=== PATIENT | male | born 1955 | race Caucasian/White ===

== ENCOUNTER 2021-07-05 07:28 | Inpatient (IN) ==
[2021-07-05 08:28] LABS: POC Blood Urea Nitrogen 44 (6-20); POC Calcium, Ionized 1.06 (1.16-1.32); POC Chloride 96 (96-108); POC Creatinine 2.6 (0.6-1.2); POC Glucose, Random > 700 (70-105); POC Potassium 4.8 (3.3-5.1); POC Sodium 124 (133-145)
--- NOTE | 2021-07-05 08:39 | Cat Scan Report ---
History: Fell, hit head, increased weakness, tremors TECHNIQUE: The brain was imaged without contrast in axial plane at 2.5 mm intervals. The radiation exposure was limited using dose reduction technology. FINDINGS: The bone windows show no skull fracture. There is motion artifact on several images. There is no evidence of hemorrhage, edema, infarct or mass effect. The ventricles and cisterns are normal. There is minor atrophy above the tentorium. IMPRESSION: Normal exam Dr. Vaughan was called with the results Interpreted and Authenticated by: Rosalio Gutierrez 07/05/21
--- NOTE | 2021-07-05 08:45 | Cat Scan Report ---
History: Fell, neck injury with pain radiating to left arm TECHNIQUE: The neck was imaged without contrast in axial plane from the skull base through the thoracic inlet. Sagittal and coronal reformats were created. The radiation exposure was limited using dose reduction technology. FINDINGS: There is a mild levoscoliotic curvature. No fracture or spondylolisthesis are present. Mild arthritis is present at the articulation of the odontoid and anterior ring of C1. Moderate disc space narrowing is present at C4-5 and there is more severe disc space narrowing at C6-7. C3-4 and C5-6 disc spaces are mildly narrowed. There is focal ossification of the posterior longitudinal ligament at C7. There is mild spurring of the uncinate processes bilaterally at C3-4 and C4-5, causing mild stenosis of the foramina. The greatest narrowing is on the right side at C4-5. There is no paraspinal hematoma or edema. Lung apices are clear and there is no pneumothorax. IMPRESSION: No fracture Degenerative disc disease and arthritis at several levels Dr. Vaughan was called with the report Interpreted and Authenticated by: Rosalio Gutierrez 07/05/21
--- NOTE | 2021-07-05 08:49 | Emergency Department Note ---
HPI General Chief complaint: Weakness Stated complaint: weakness Time Seen by Provider: 07/05/21 08:00 Source: EMS Mode of arrival: ambulatory History of Present Illness HPI Narrative: Narrative: Patient presents to the emergency department after a fall. Patient reports it is ground-level his legs just gave out from underneath him. Patient does have a tremor at baseline. Patient denies otherwise any focal weakness. EMS reports that upon arrival of the patient's house there is human feces scattered and appeared to be poor living conditions. They state they are frequently called to his home. At the time of arrival patient states that he hit his head he denies loss of consciousness. He initially was not agreeable to any labs being obtained. He denies any fevers chills, shortness of breath. Related Data Home Medications Medication Instructions Recorded Confirmed alcohol swabs (BD Alcohol Swabs) See Rx Instructions TOPICAL 01/20/18 07/05/21 .COMPLEX cholecalciferol (vitamin D3) 50 2,000 unit PO QDAY 01/20/18 07/05/21 mcg (2,000 unit) capsule pen needle, diabetic 32 gauge x #10 each 01/20/18 08/16/20 5/32" (BD Ultra-Fine Arabella Pen Needle) zinc acetate 50 mg (zinc) capsule 50 mg PO QDAY 12/15/19 07/05/21 (Galzin) acetaminophen 650 mg 1 tab PO Q4HP PRN 07/05/21 07/05/21 tablet,extended release (Tylenol Arthritis Pain) albuterol sulfate 90 mcg/actuation 2 puff PO Q6HP PRN 07/05/21 07/05/21 aerosol inhaler budesonide-formoterol HFA 160 2 puff CONTINUOUS INHALATION BID 07/05/21 07/05/21 mcg-4.5 mcg/actuation aerosol inhaler carvedilol 6.25 mg tablet 1 tab PO BIDAC 07/05/21 07/05/21 cyclobenzaprine 10 mg tablet 1 tab PO HSP PRN 07/05/21 07/05/21 famotidine 20 mg tablet 1 tab PO QDAY 07/05/21 07/05/21 flash glucose sensor (FreeStyle 07/05/21 07/05/21 Ed 2 Sensor) gabapentin 300 mg capsule 1 cap PO BID 07/05/21 07/05/21 insulin glargine U-300 conc 300 50 unit SUBCUT HS 07/05/21 07/05/21 unit/mL (3 mL) subcutaneous pen (Toujeo Max U-300 SoloStar) insulin lispro 100 unit/mL See Rx Instructions .ROUTE .COMPLEX 07/05/21 07/05/21 subcutaneous pen primidone 250 mg tablet See Rx Instructions .ROUTE .COMPLEX 07/05/21 07/05/21 tamsulosin 0.4 mg capsule 2 cap PO QAM 07/05/21 07/05/21 tramadol 50 mg tablet 50 mg PO TID 07/05/21 07/05/21 vitamin B complex-vitamin C-folic 1 tab PO QDAY 07/05/21 07/05/21 acid 0.8 mg tablet (Jolly-Blayne) Allergies Allergy/AdvReac Type Severity Reaction Status Date / Time Procaine [From Novocain] Allergy Severe "breathing Verified 07/05/21 07:43 difficulty" Sulfa (Sulfonamide Allergy Severe Anaphylaxis Verified 07/05/21 07:43 Antibiotics) influenza virus vacc Allergy Intermediate SOB, Verified 07/05/21 13:10 trivalent, split itching [From Fluzone] ibuprofen AdvReac Severe has ckd Verified 07/05/21 07:43 and hx of liver cancer rosuvastatin AdvReac Intermediate Stomach Verified 07/05/21 13:10 pain Review of Systems ROS ROS Narrative: Narrative: All systems ED: reviewed and negative except as stated. COUNT INCLUDES THE [facility] Narrative Patient History Narrative: Narrative: Medical/Surgical/Family History All Active Problems (Updated 07/05/21 @ 13:20 by Diomedes Thomson MD) Lactic acidosis (Acute) ADRYAN (acute kidney injury) (Acute) High anion gap metabolic acidosis (Acute) Effusion of right knee (Acute) Hyperosmolar hyperglycemic state (HHS) (Acute) VAHID (obstructive sleep apnea) (Chronic) Diaphragm paralysis (Chronic) Scoliosis (Chronic) Resting tremor (Chronic) GERD (gastroesophageal reflux disease) (Chronic) Electrocardiogram abnormal (Chronic) Lumbar radiculopathy (Chronic) Cervical radiculopathy (Chronic) Secondary hyperparathyroidism (Chronic) History of intravenous drug abuse (Chronic) History of tobacco use (Chronic) Urethral stricture, 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) RAD (reactive airway disease) (Chronic) Proteinuria (Chronic) Prostatitis, unspecified (Chronic 02/26/13) Pancreatitis (Chronic) Obesity (Chronic) Malignant neoplasm of liver (Chronic) Lymphedema (Chronic 04/30/13) Impotence, 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) Personal history of hypospadias (Chronic 02/26/13) Hypertension, essential (Chronic 02/05/13) Hyperlipidemia (Chronic) Heartburn (Chronic) Elevated PSA (Chronic 02/10/13) Edema (Chronic) DMII (diabetes mellitus, type 2) (Chronic 2008) Colon polyps (Chronic 03/11/13) COPD (chronic obstructive pulmonary disease) (Chronic) CKD (chronic kidney disease), stage IV (Chronic) Chest pain (Chronic 07/22/13) BPH w/o urinary obs/LUTS (Chronic 01/2013) Asthma (Chronic 1954) Anemia in chronic kidney disease (Chronic) Rib pain (Chronic) Thoracic back pain (Chronic) Medical History (Updated 07/05/21 @ 13:20 by Diomedes Thomson MD) Anemia in chronic kidney disease Asthma (1954) BPH w/o urinary obs/LUTS (01/2013) Cervical radiculopathy Chest pain (07/22/13) noted as left arm pain, associated with stress given his high risk factors for CAD get nuclear stress test. ekg done today shows poor r wave progression, LAFB. CKD (chronic kidney disease), stage IV Colon polyps (03/11/13) HP COPD (chronic obstructive pulmonary disease) Diaphragm paralysis Significantly elevated right diaphragm; fluoroscopy pending 03/10/2018 DMII (diabetes mellitus, type 2) (2008) Edema Electrocardiogram abnormal Elevated PSA (02/10/13) GERD (gastroesophageal reflux disease) Heartburn History of intravenous drug abuse History of tobacco use Hyperlipidemia Hypertension, essential (02/05/13) Impotence, organic (01/2013) Lumbar radiculopathy Lymphedema (04/30/13) Malignant neoplasm of liver Obesity VAHID (obstructive sleep apnea) Attempted CPAP; but unable to tolerate and he returned the machine. Pancreatitis Personal history of hypospadias (02/26/13) Prostatitis, unspecified (02/26/13) Proteinuria RAD (reactive airway disease) Resting tremor Scoliosis Secondary hyperparathyroidism Urethral stricture, traumatic (03/30/13) Surgical History H/O colonoscopy 03/11/13 HP- colonoscopy due in 10 years H/O cystoscopy Visual internal urethrotomy H/O eye surgery 1969 Bilateral H/O prostate biopsy 2010 History of surgery 07/2015 REC LSR hang back and REC LR OU History of surgery of liver Liver cancer Status post biopsy of kidney 07/01/2013 Family History Mother , at 61 Diabetes Father , at 100 Old age Social History Smoking Status: Former smoker Alcohol Intake Frequency: a few times a week Substance Use: former substance user Exam Narrative Narrative: Narrative: Vital signs noted General: Awake. Alert. No distress. HEENT: NCAT Neck: No cervical spinal tenderness to palpation in the midline Cardiovascular: RRR. No murmur. No rubs. No gallops. Respiratory: No respiratory distress. Breath sounds equal. Lungs clear. Gastrointestinal: Soft. No tenderness Musculoskeletal: No pain. No soft tissue swelling. Good ROM. No signs injury Skin: Warm. Dry. No rash Neurologic: Alert and oriented, tremors throughout all extremities every 10 to 20 seconds patient reports is baseline Course Vital Signs Vital signs: Vital Signs Temperature 98.0 F 07/05/21 07:32 Pulse Rate 99 H 07/05/21 07:32 Respiratory Rate 16 07/05/21 07:32 Blood Pressure 129/78 07/05/21 07:32 Pulse Oximetry (%) 95 07/05/21 07:32 Temperature 98.2 F 07/06/21 02:01 Pulse Rate 84 07/06/21 03:01 Respiratory Rate 20 07/06/21 03:01 Blood Pressure 116/68 07/06/21 03:01 Pulse Oximetry (%) 95 07/06/21 03:01 [facility] MDM Narrative Medical decision making narrative: Narrative: Patient presents to the emergency department after a fall. EMS reports that the patient was in poor living conditions. Patient initially declined labs but was agreeable to a [id number] blood glucose which read greater than 600 he then was agreeable for labs his blood glucose came back at 900 patient was given 2 L of IV fluids his VBG does not show that he is acidotic his pH is 7.33 however he does have a mild anion gap acidosis the bicarb of 14 anion gap is 23. Patient's beta hydroxybutyrate is 1.49. I suspect mostly hyperosmotic hyperglycemic state as opposed to a pure DKA. Patient was started on insulin drip 0.1 units/kg/h mag and Phos were sent. Patient will be admitted to the hospitalist for further work-up and evaluation. Lab Data Result diagrams: 07/05/21 08:20 07/05/21 12:34 Labs: Lab Results 07/05/21 07/05/21 07/05/21 Range/Units 08:20 08:20 08:20 WBC 9.0 (4.5-11.0) K/mcL RBC 5.00 (4.63-6.08) M/mcL Hgb 13.9 (13.7-17.5) g/dL Hct 45.9 (40.1-51.0) % POC Hct (41-55) MCV 91.8 (80.0-100.0) fL MCH 27.8 (26.0-34.0) pg MCHC 30.3 L (31.0-36.0) g/dL RDW 18.2 H (11.5-14.5) % Plt Count 415 (140-440) K/mcL MPV 10.6 H (7.4-10.4) fL Neut % (Auto) 67.5 (38.0-78.0) % Lymph % (Auto) 22.3 (15.5-49.0) % [place] % (Auto) 7.4 (1.0-12.0) % Eos % (Auto) 2.2 (0.0-7.0) % Baso % (Auto) 0.6 (0.0-2.0) % Lymph # (Auto) 2.02 (1.50-4.80) K/mcL [place] # (Auto) 0.67 (0.10-0.90) K/mcL Eos # (Auto) 0.20 (0.00-0.70) K/mcL Baso # (Auto) 0.05 (0.00-0.30) K/mcL Absolute Neutrophils 6.10 (1.80-8.00) K/mcL POC VBG pH (7.32-7.42) POC VBG pCO2 at Temp (41-51) POC VBG pO2 (25-40) POC VBG HCO3 (24-28) POC VBG Total CO2 (25-29) POC Venous O2 Sat (40-70) POC VBG Base Excess (-2-2) POC Sodium (133-145) Sodium (133-145) mmol/L POC Potassium (3.3-5.1) Potassium (3.3-5.1) mmol/L POC Chloride (96-108) Chloride (96-108) mmol/L Carbon Dioxide (22-30) mmol/L POC Total CO2 (22-30) Anion Gap (8.0-16.0) POC BUN (6-20) BUN (8-23) mg/dL Creatinine (0.7-1.2) mg/dL POC Creatinine (0.6-1.2) GFR Calculation Glucose (70-105) mg/dL POC Glucose (70-105) Osmolality 329 H (280-300) mOSM/kg POC Venous Lactate (0.5-2) Calcium (8.6-10.4) mg/dL POC WB Ioniz Calcium (1.16-1.32) Phosphorus (2.5-4.5) mg/dL Magnesium (1.6-2.5) mg/dL Total Bilirubin 0.4 (0.1-1.0) mg/dL Direct Bilirubin 0.3 H (<0.3) mg/dL AST 14 (<40) U/L ALT 10 (<40) U/L Alkaline Phosphatase 122 H (39-117) U/L Total Protein 6.3 (5.9-8.4) gm/dL Albumin 3.6 (3.2-5.2) gm/dL Globulin 2.7 (2.2-3.7) gm/dL Beta-Hydroxybutyrate 1.49 H (<0.27) mmol/L 07/05/21 07/05/21 07/05/21 Range/Units 08:20 08:20 08:23 WBC (4.5-11.0) K/mcL RBC (4.63-6.08) M/mcL Hgb (13.7-17.5) g/dL Hct (40.1-51.0) % POC Hct 46.0 (41-55) MCV (80.0-100.0) fL MCH (26.0-34.0) pg MCHC (31.0-36.0) g/dL RDW (11.5-14.5) % Plt Count (140-440) K/mcL MPV (7.4-10.4) fL Neut % (Auto) (38.0-78.0) % Lymph % (Auto) (15.5-49.0) % [place] % (Auto) (1.0-12.0) % Eos % (Auto) (0.0-7.0) % Baso % (Auto) (0.0-2.0) % Lymph # (Auto) (1.50-4.80) K/mcL [place] # (Auto) (0.10-0.90) K/mcL Eos # (Auto) (0.00-0.70) K/mcL Baso # (Auto) (0.00-0.30) K/mcL Absolute Neutrophils (1.80-8.00) K/mcL POC VBG pH (7.32-7.42) POC VBG pCO2 at Temp (41-51) POC VBG pO2 (25-40) POC VBG HCO3 (24-28) POC VBG Total CO2 (25-29) POC Venous O2 Sat (40-70) POC VBG Base Excess (-2-2) POC Sodium 124 L (133-145) Sodium 123 L 125 L (133-145) mmol/L POC Potassium 4.8 (3.3-5.1) Potassium 4.7 4.8 (3.3-5.1) mmol/L POC Chloride 96 (96-108) Chloride 87 L 88 L (96-108) mmol/L Carbon Dioxide 17 L 14 L (22-30) mmol/L POC Total CO2 22.0 (22-30) Anion Gap 19.0 H 23.0 H (8.0-16.0) POC BUN 44 H (6-20) BUN 41 H (8-23) mg/dL Creatinine 2.4 H (0.7-1.2) mg/dL POC Creatinine 2.6 H (0.6-1.2) GFR Calculation 27 Glucose 900 H* (70-105) mg/dL POC Glucose > 700 H* (70-105) Osmolality (280-300) mOSM/kg POC Venous Lactate (0.5-2) Calcium 8.7 (8.6-10.4) mg/dL POC WB Ioniz Calcium 1.06 L (1.16-1.32) Phosphorus 3.5 (2.5-4.5) mg/dL Magnesium 2.8 H (1.6-2.5) mg/dL Total Bilirubin (0.1-1.0) mg/dL Direct Bilirubin (<0.3) mg/dL AST (<40) U/L ALT (<40) U/L Alkaline Phosphatase (39-117) U/L Total Protein (5.9-8.4) gm/dL Albumin (3.2-5.2) gm/dL Globulin (2.2-3.7) gm/dL Beta-Hydroxybutyrate (<0.27) mmol/L 07/05/21 Range/Units 08:24 WBC (4.5-11.0) K/mcL RBC (4.63-6.08) M/mcL Hgb (13.7-17.5) g/dL Hct (40.1-51.0) % POC Hct (41-55) MCV (80.0-100.0) fL MCH (26.0-34.0) pg MCHC (31.0-36.0) g/dL RDW (11.5-14.5) % Plt Count (140-440) K/mcL MPV (7.4-10.4) fL Neut % (Auto) (38.0-78.0) % Lymph % (Auto) (15.5-49.0) % [place] % (Auto) (1.0-12.0) % Eos % (Auto) (0.0-7.0) % Baso % (Auto) (0.0-2.0) % Lymph # (Auto) (1.50-4.80) K/mcL [place] # (Auto) (0.10-0.90) K/mcL Eos # (Auto) (0.00-0.70) K/mcL Baso # (Auto) (0.00-0.30) K/mcL Absolute Neutrophils (1.80-8.00) K/mcL POC VBG pH 7.33 (7.32-7.42) POC VBG pCO2 at Temp 38.8 L (41-51) POC VBG pO2 39 (25-40) POC VBG HCO3 20.4 L (24-28) POC VBG Total CO2 22.0 L (25-29) POC Venous O2 Sat 70.0 (40-70) POC VBG Base Excess -6.0 L (-2-2) POC Sodium (133-145) Sodium (133-145) mmol/L POC Potassium (3.3-5.1) Potassium (3.3-5.1) mmol/L POC Chloride (96-108) Chloride (96-108) mmol/L Carbon Dioxide (22-30) mmol/L POC Total CO2 (22-30) Anion Gap (8.0-16.0) POC BUN (6-20) BUN (8-23) mg/dL Creatinine (0.7-1.2) mg/dL POC Creatinine (0.6-1.2) GFR Calculation Glucose (70-105) mg/dL POC Glucose (70-105) Osmolality (280-300) mOSM/kg POC Venous Lactate 2.1 H (0.5-2) Calcium (8.6-10.4) mg/dL POC WB Ioniz Calcium (1.16-1.32) Phosphorus (2.5-4.5) mg/dL Magnesium (1.6-2.5) mg/dL Total Bilirubin (0.1-1.0) mg/dL Direct Bilirubin (<0.3) mg/dL AST (<40) U/L ALT (<40) U/L Alkaline Phosphatase (39-117) U/L Total Protein (5.9-8.4) gm/dL Albumin (3.2-5.2) gm/dL Globulin (2.2-3.7) gm/dL Beta-Hydroxybutyrate (<0.27) mmol/L Discharge Plan Patient/Caregiver Discharge Instructions Pt seen by LOAN OPERATIONS MANAGER/PA only: No Clinical Impression: Hyperosmolar hyperglycemic state (HHS) Patient Disposition: Xfer As Inpt ([facility]) Condition: Serious Discharge Date/Time: 07/05/21 12:05
[2021-07-05] MEDS ORDERED: 0.9 % SODIUM CHLORIDE 1,000 ML IV ONE ×2 (09:13→10:19)
[2021-07-05 09:25] LABS: Basophils # (Auto) 0.05 K/mcL (0.00-0.30); Basophils % (Auto) 0.6 % (0.0-2.0); Eosinophils % (Auto) 2.2 % (0.0-7.0); Hematocrit 45.9 % (40.1-51.0); Hemoglobin 13.9 g/dL (13.7-17.5); Lymphocytes # (Auto) 2.02 K/mcL (1.50-4.80); Lymphocytes % (Auto) 22.3 % (15.5-49.0); Mean Cell Volume 91.8 fL (80.0-100.0); Mean Corpuscular HGB Conc 30.3 g/dL (31.0-36.0); Mean Platelet Volume 10.6 fL (7.4-10.4); Monocytes # (Auto) 0.67 K/mcL (0.10-0.90); Monocytes % (Auto) 7.4 % (1.0-12.0); Neutrophils % (Auto) 67.5 % (38.0-78.0); Platelet Count 415 K/mcL (140-440); Red Cell Distribution Width 18.2 % (11.5-14.5)
[2021-07-05 09:37] LABS: ALT/SGPT 10 U/L (<40); AST/SGOT 14 U/L (<40); Albumin 3.6 gm/dL (3.2-5.2); Alkaline Phosphatase 122 U/L (39-117); Beta Hydroxybutyrate 1.49 mmol/L (<0.27); Bilirubin,Direct 0.3 mg/dL (<0.3); Bilirubin,Total 0.4 mg/dL (0.1-1.0); Globulin 2.7 gm/dL (2.2-3.7)
[2021-07-05 09:53] LABS: Blood Urea Nitrogen 41 mg/dL (8-23); Calcium 8.7 mg/dL (8.6-10.4); Carbon Dioxide 17 mmol/L (22-30); Chloride 87 mmol/L (96-108); Glomerular Filtration Rate 27; Glucose 900 mg/dL (70-105)
[2021-07-05] MEDS ORDERED: DEXTROSE 50% 50 ML SYRINGE IV ONE (10:26)
[2021-07-05] MEDS ORDERED: INSULIN REGULAR, HUMAN 50 UNIT in 0.9 % SODIUM CHLORIDE 99.5 ML IV SCH ×2 (10:30→13:15)
[2021-07-05] MEDS ORDERED: NACL 0.9% W/KCL 20MEQ 1,000 ML IV SCH (10:45)
[2021-07-05 11:00] LABS: Phosphorous 3.5 mg/dL (2.5-4.5)
[2021-07-05] MEDS ORDERED: INSULIN REGULAR, HUMAN 50 UNIT in 0.9 % SODIUM CHLORIDE 99.5 ML IV ONE (11:55)
[2021-07-05] MEDS ORDERED: ONDANSETRON 4 MG/2 ML VIAL IV PRN (12:20)
[2021-07-05] MEDS ORDERED: SENNOSIDES 1 TABLET PO PRN (12:20)
--- NOTE | 2021-07-05 13:15 | Internal Med History&Physical ---
HPI History of Present Illness Patient information: Note initiated : 07/05/21 at 1:12 pm Service Date, if different from initiated Date: [as above] Patient: Rudy Ro a 65 y/o M admitted on 07/05/21 for Weakness. Chief Complaint: [ALOC, fall] Chief complaint: Hyperglycemia History of present illness: Mr. Ro is a 65 year old M with a past medical history significant for insulin-dependent diabetes who presents to the hospital with significant hyperglycemia. The patient is incredibly poor historian, and was agitated. Racist remarks were sad and was unclear if he wanted me to look after him as his physician. On presentation, he was hemodynamically stable and afebrile. He was found to have a blood sugar greater than 700, lactic acid of 2.1, creatinine of 2.6, and an anion gap of 23. The patient was being hospitalized for further management evaluation of his DKA. Review of Systems ROS unobtainable: other PFSH PFSH All Active Problems (Updated 07/05/21 @ 13:20 by Diomedes Thomson MD) Lactic acidosis (Acute) ADRYAN (acute kidney injury) (Acute) High anion gap metabolic acidosis (Acute) Effusion of right knee (Acute) Hyperosmolar hyperglycemic state (HHS) (Acute) VAHID (obstructive sleep apnea) (Chronic) Diaphragm paralysis (Chronic) Scoliosis (Chronic) Resting tremor (Chronic) GERD (gastroesophageal reflux disease) (Chronic) Electrocardiogram abnormal (Chronic) Lumbar radiculopathy (Chronic) Cervical radiculopathy (Chronic) Secondary hyperparathyroidism (Chronic) History of intravenous drug abuse (Chronic) History of tobacco use (Chronic) Urethral stricture, 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) RAD (reactive airway disease) (Chronic) Proteinuria (Chronic) Prostatitis, unspecified (Chronic 02/26/13) Pancreatitis (Chronic) Obesity (Chronic) Malignant neoplasm of liver (Chronic) Lymphedema (Chronic 04/30/13) Impotence, 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) Personal history of hypospadias (Chronic 02/26/13) Hypertension, essential (Chronic 02/05/13) Hyperlipidemia (Chronic) Heartburn (Chronic) Elevated PSA (Chronic 02/10/13) Edema (Chronic) DMII (diabetes mellitus, type 2) (Chronic 2008) Colon polyps (Chronic 03/11/13) COPD (chronic obstructive pulmonary disease) (Chronic) CKD (chronic kidney disease), stage IV (Chronic) Chest pain (Chronic 07/22/13) BPH w/o urinary obs/LUTS (Chronic 01/2013) Asthma (Chronic 1954) Anemia in chronic kidney disease (Chronic) Rib pain (Chronic) Thoracic back pain (Chronic) Medical History (Updated 07/05/21 @ 13:20 by Diomedes Thomson MD) Anemia in chronic kidney disease Asthma (1955) BPH w/o urinary obs/LUTS (01/2013) Cervical radiculopathy Chest pain (07/22/13) noted as left arm pain, associated with stress given his high risk factors for CAD get nuclear stress test. ekg done today shows poor r wave progression, LAFB. CKD (chronic kidney disease), stage IV Colon polyps (03/11/13) HP COPD (chronic obstructive pulmonary disease) Diaphragm paralysis Significantly elevated right diaphragm; fluoroscopy pending 03/10/2018 DMII (diabetes mellitus, type 2) (2008) Edema Electrocardiogram abnormal Elevated PSA (02/10/13) GERD (gastroesophageal reflux disease) Heartburn History of intravenous drug abuse History of tobacco use Hyperlipidemia Hypertension, essential (02/05/13) Impotence, organic (01/2013) Lumbar radiculopathy Lymphedema (04/30/13) Malignant neoplasm of liver Obesity VAHID (obstructive sleep apnea) Attempted CPAP; but unable to tolerate and he returned the machine. Pancreatitis Personal history of hypospadias (02/26/13) Prostatitis, unspecified (02/26/13) Proteinuria RAD (reactive airway disease) Resting tremor Scoliosis Secondary hyperparathyroidism Urethral stricture, traumatic (03/30/13) Surgical History H/O colonoscopy 03/11/13 HP- colonoscopy due in 10 years H/O cystoscopy Visual internal urethrotomy H/O eye surgery 1969 Bilateral H/O prostate biopsy 2009 History of surgery 07/2015 REC LSR hang back and REC LR OU History of surgery of liver Liver cancer Status post biopsy of kidney 07/01/2013 Family History Mother , at 61 Diabetes Father , at 100 Old age Social History marital status: education level: college occupational status: disabled occupation: [employer] sexually active: Yes other: Children-1 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 physical activity: other details: Gym frequency: 3-4 times per week smoking status: Former smoker smoking status stop date: 06/14/07 alcohol intake frequency: a few times a week substance use type: former substance user firearms in home: Yes MEDS/ALLERGIES Home Medications and Allergies Home Medications Medication Instructions Recorded Confirmed Type omega-3 fatty acids-fish oil 684 1 each PO DAILY 09/23/16 08/16/20 History mg-1,200 mg capsule,delayed release Vitamin B 12 1,000 Folic Acid See Rx Instructions SUBLINGUAL QDAY 01/20/18 08/16/20 History 400 mcg alcohol swabs (BD Alcohol Swabs) See Rx Instructions TOPICAL 01/20/18 07/05/21 History .COMPLEX cholecalciferol (vitamin D3) 50 2,000 unit PO QDAY 01/20/18 08/16/20 History mcg (2,000 unit) capsule insulin aspart U-100 100 unit/mL See Rx Instructions SUB-Q .COMPLEX 01/20/18 08/16/20 History (3 mL) subcutaneous pen (Novolog Flexpen U-100 Insulin aspart) pen needle, diabetic 32 gauge x #10 each 01/20/18 08/16/20 History 5/32" (BD Ultra-Fine Arabella Pen Needle) zinc acetate 50 mg (zinc) capsule 50 mg PO QDAY 12/15/19 08/16/20 History (Galzin) acetaminophen 650 mg 1 tab PO Q4HP PRN 07/05/21 07/05/21 History tablet,extended release (Tylenol Arthritis Pain) albuterol sulfate 90 mcg/actuation 2 puff PO Q6HP PRN 07/05/21 07/05/21 History aerosol inhaler ascorbic acid (vitamin C) 500 mg 1 tab PO QDAY 07/05/21 07/05/21 History tablet (Vitamin C) budesonide-formoterol HFA 160 2 puff CONTINUOUS INHALATION BID 07/05/21 07/05/21 History mcg-4.5 mcg/actuation aerosol inhaler carvedilol 6.25 mg tablet 1 tab PO 07/05/21 07/05/21 History cyclobenzaprine 10 mg tablet 1 tab PO HSP PRN 07/05/21 07/05/21 History famotidine 20 mg tablet 1 tab PO QDAY 07/05/21 07/05/21 History flash glucose sensor (FreeStyle 07/05/21 07/05/21 History Ed 2 Sensor) gabapentin 300 mg capsule 1 cap PO BID 07/05/21 07/05/21 History insulin glargine U-300 conc 300 50 unit SUBCUT HS 07/05/21 07/05/21 History unit/mL (3 mL) subcutaneous pen (Toujeo Max U-300 SoloStar) insulin lispro 100 unit/mL See Protocol SUBCUT ACHS 07/05/21 History subcutaneous pen primidone 250 mg tablet mg PO 07/05/21 07/05/21 History tamsulosin 0.4 mg capsule 2 cap PO QAM 07/05/21 07/05/21 History tramadol 50 mg tablet 50 mg PO TID 07/05/21 07/05/21 History Allergies Allergy/AdvReac Type Severity Reaction Status Date / Time Procaine [From Novocain] Allergy Severe "breathing Verified 07/05/21 07:43 difficulty" Sulfa (Sulfonamide Allergy Severe Anaphylaxis Verified 07/05/21 07:43 Antibiotics) influenza virus vacc Allergy Intermediate SOB, Verified 07/05/21 13:10 trivalent, split itching [From Fluzone] ibuprofen AdvReac Severe has ckd Verified 07/05/21 07:43 and hx of liver cancer rosuvastatin AdvReac Intermediate Stomach Verified 07/05/21 13:10 pain EXAM Constitutional Vitals: Temp Pulse Resp BP Pulse Ox 98.0 F 98 H 22 139/118 98 07/05/21 07:32 07/05/21 11:41 07/05/21 11:41 07/05/21 11:41 07/05/21 11:41 General appearance: average body habitus Head Head exam: Present atraumatic, normal inspection and normocephalic Eye Eye exam: Present EOMI, normal appearance and PERRL; Absent conjunctival injection ENT ENT exam: Present normal exam; Absent mucous membranes dry Neck Neck exam: Present full ROM; Absent lymphadenopathy Respiratory Respiratory exam: Present normal respiratory exam and CTAB; Absent decreased breath sounds, respiratory distress or wheezes Cardiovascular Cardiovascular exam: Present normal rate and rhythm and RRR; Absent JVD GI/Abdominal GI/Abdominal exam: Present normal bowel sounds and soft; Absent diminished bowel sounds, distended, guarding, mass, rebound or tenderness Neurological Exam Neurological exam: Present alert, CN II-XII intact and oriented X3 Psychiatric Psychiatric exam: Present normal affect and normal mood Skin Skin exam: Present intact and warm; Absent erythema, pallor, petechiae or rash DATA Data Completed and Pending Labs: Labs from last 24 hours 07/05/21 07/05/21 07/05/21 12:34 08:24 08:23 WBC RBC Hgb Hct POC Hct 46.0 MCV MCH MCHC RDW Plt Count MPV Neut % (Auto) Lymph % (Auto) Hartley % (Auto) Eos % (Auto) Baso % (Auto) Lymph # (Auto) Hartley # (Auto) Eos # (Auto) Baso # (Auto) Absolute Neutrophils POC VBG pH 7.33 POC VBG pCO2 at Temp 38.8 L POC VBG pO2 39 POC VBG HCO3 20.4 L POC VBG Total CO2 22.0 L POC Venous O2 Sat 70.0 POC VBG Base Excess -6.0 L POC Sodium 124 L Sodium Pending POC Potassium 4.8 Potassium Pending POC Chloride 96 Chloride Pending Carbon Dioxide Pending POC Total CO2 22.0 Anion Gap Pending POC BUN 44 H BUN Pending Creatinine Pending POC Creatinine 2.6 H GFR Calculation Pending Glucose Pending POC Glucose > 700 H* Osmolality POC Venous Lactate 2.1 H Calcium Pending POC WB Ioniz Calcium 1.06 L Phosphorus Magnesium Total Bilirubin Direct Bilirubin AST ALT Alkaline Phosphatase Total Protein Albumin Globulin Beta-Hydroxybutyrate 07/05/21 07/05/21 07/05/21 08:20 08:20 08:20 WBC RBC Hgb Hct POC Hct MCV MCH MCHC RDW Plt Count MPV Neut % (Auto) Lymph % (Auto) Hartley % (Auto) Eos % (Auto) Baso % (Auto) Lymph # (Auto) Hartley # (Auto) Eos # (Auto) Baso # (Auto) Absolute Neutrophils POC VBG pH POC VBG pCO2 at Temp POC VBG pO2 POC VBG HCO3 POC VBG Total CO2 POC Venous O2 Sat POC VBG Base Excess POC Sodium Sodium 125 L 123 L POC Potassium Potassium 4.8 4.7 POC Chloride Chloride 88 L 87 L Carbon Dioxide 14 L 17 L POC Total CO2 Anion Gap 23.0 H 19.0 H POC BUN BUN 41 H Creatinine 2.4 H POC Creatinine GFR Calculation 27 Glucose 900 H* POC Glucose Osmolality 329 H POC Venous Lactate Calcium 8.7 POC WB Ioniz Calcium Phosphorus 3.5 Magnesium 2.8 H Total Bilirubin Direct Bilirubin AST ALT Alkaline Phosphatase Total Protein Albumin Globulin Beta-Hydroxybutyrate 07/05/21 07/05/21 08:20 08:20 WBC 9.0 RBC 5.00 Hgb 13.9 Hct 45.9 POC Hct MCV 91.8 MCH 27.8 MCHC 30.3 L RDW 18.2 H Plt Count 415 MPV 10.6 H Neut % (Auto) 67.5 Lymph % (Auto) 22.3 Hartley % (Auto) 7.4 Eos % (Auto) 2.2 Baso % (Auto) 0.6 Lymph # (Auto) 2.02 Hartley # (Auto) 0.67 Eos # (Auto) 0.20 Baso # (Auto) 0.05 Absolute Neutrophils 6.10 POC VBG pH POC VBG pCO2 at Temp POC VBG pO2 POC VBG HCO3 POC VBG Total CO2 POC Venous O2 Sat POC VBG Base Excess POC Sodium Sodium POC Potassium Potassium POC Chloride Chloride Carbon Dioxide POC Total CO2 Anion Gap POC BUN BUN Creatinine POC Creatinine GFR Calculation Glucose POC Glucose Osmolality POC Venous Lactate Calcium POC WB Ioniz Calcium Phosphorus Magnesium Total Bilirubin 0.4 Direct Bilirubin 0.3 H AST 14 ALT 10 Alkaline Phosphatase 122 H Total Protein 6.3 Albumin 3.6 Globulin 2.7 Beta-Hydroxybutyrate 1.49 H A/P Assessment and plan (1) Hyperosmolar hyperglycemic state (HHS): Status: Acute (2) Lumbar radiculopathy: Status: Chronic (3) Cervical radiculopathy: Status: Chronic (4) Hypertension, essential: Status: Chronic (5) Hyperlipidemia: Status: Chronic (6) High anion gap metabolic acidosis: Status: Acute (7) ADRYAN (acute kidney injury): Status: Acute (8) Lactic acidosis: Status: Acute Narrative A/P Narrative: The patient likely developed HON K/DKA in the setting of medication noncompliance. It is unclear if the patient has full insight to his condition. Plan of Treatment: The patient will be placed on an insulin infusion and have his blood sugar checked every hour while in the ICU. We will monitor closely until his anion gap closes. We will monitor his potassium closely as well. If it falls below 3.3, will replete. The patient was given 10 units of insulin in the insulin infusion will be at 0.5 units/kg/h. If his blood sugar is below 150 but he has a persistently elevated anion gap, may add glucose. There is no proven benefit of bicarbonate infusion with a pH of greater than 6.9. Total body phosphate deficit through serum phosphate may be higher normal and will decrease with insulin. In the setting of acute kidney injury we will aggressively replace volume with colloids. The patient was resistant to getting a second IV. His home diuretic therapy and lisinopril will be held. Time Spent With Patient Time: Total time spent is greater than 50% in coordination of care (as documented) at patient's floor/unit and/or counseling patient: Total time spent with greater than 50% in coordination of care (as documented) at patient's floor/unit and/or counseling patient:: 50 - 70 minutes Critical Care Time: Yes Total Critical Care Time: 60
[2021-07-05 13:45] LABS: Appearance,Urine HAZY (Clear); Bilirubin,Urine Negative (Negative); Color,Urine STRAW; Glucose,Urine (UA) >=500 mg/dL (Negative); Ketones,Urine 5 mg/dL (Negative); Leukocyte Esterase,Urine 75 /uL (Negative); Nitrate,Urine Negative (Negative); Protein,Urine 100 mg/dL (Negative); Specific Gravity,Urine 1.014 (1.000-1.035); Urobilinogen,Urine Negative
[2021-07-05] MEDS ORDERED: INSULIN GLARGINE, HUMAN 1 UNIT/0.01 ML SQ ONE (15:24)
[2021-07-05 16:38] LABS: Blood Urea Nitrogen 37 mg/dL (8-23); Calcium 8.2 mg/dL (8.6-10.4); Carbon Dioxide 22 mmol/L (22-30); Chloride 96 mmol/L (96-108); Glomerular Filtration Rate 30; Glucose 577 mg/dL (70-105)
[2021-07-05] MEDS: 0.9 % SODIUM CHLORIDE 10 ML SYRINGE IV SCH ×2 (16:47→20:05)
[2021-07-05] MEDS: 0.9 % SODIUM CHLORIDE 1,000 ML IV SCH (16:50)
[2021-07-05] MEDS: INSULIN LISPRO 1 UNIT/0.01 ML UNIT SQ SCH ×2 (17:30→20:45)
[2021-07-05] MEDS ORDERED: ALBUTEROL SULFATE 200 PUFF INHALER IH PRN (18:41)
[2021-07-05] MEDS: GABAPENTIN 300 MG CAPSULE PO SCH (20:46)
[2021-07-05] MEDS: HEPARIN 5,000 UNIT/ML VIAL SQ SCH (20:47)
[2021-07-05] MEDS: traMADol 50 MG TABLET PO PRN (21:05)
[2021-07-06] MEDS: 0.9 % SODIUM CHLORIDE 1,000 ML IV SCH ×2 (02:59→13:26)
[2021-07-06] MEDS: 0.9 % SODIUM CHLORIDE 10 ML SYRINGE IV SCH ×3 (05:35→20:36)
[2021-07-06 06:31] LABS: Basophils # (Auto) 0.03 K/mcL (0.00-0.30); Basophils % (Auto) 0.4 % (0.0-2.0); Eosinophils # (Auto) 0.22 K/mcL (0.00-0.70); Eosinophils % (Auto) 2.6 % (0.0-7.0); Hematocrit 38.9 % (40.1-51.0); Hemoglobin 11.6 g/dL (13.7-17.5); Lymphocytes # (Auto) 2.52 K/mcL (1.50-4.80); Lymphocytes % (Auto) 30.3 % (15.5-49.0); Mean Cell Volume 91.3 fL (80.0-100.0); Mean Corpuscular HGB Conc 29.8 g/dL (31.0-36.0); Mean Platelet Volume 10.1 fL (7.4-10.4); Monocytes # (Auto) 0.61 K/mcL (0.10-0.90); Monocytes % (Auto) 7.3 % (1.0-12.0); Neutrophils % (Auto) 59.4 % (38.0-78.0); Platelet Count 343 K/mcL (140-440); RBC 4.26 M/mcL (4.63-6.08); Red Cell Distribution Width 18.4 % (11.5-14.5); WBC 8.3 K/mcL (4.5-11.0)
[2021-07-06 07:31] LABS: Blood Urea Nitrogen 27 mg/dL (8-23); Calcium 7.9 mg/dL (8.6-10.4); Carbon Dioxide 19 mmol/L (22-30); Chloride 109 mmol/L (96-108); Glomerular Filtration Rate 44; Glucose 154 mg/dL (70-105)
[2021-07-06] MEDS ORDERED: INSULIN REGULAR, HUMAN 50 UNIT in 0.9 % SODIUM CHLORIDE 99.5 ML IV PRN (07:45)
[2021-07-06] MEDS: INSULIN LISPRO 1 UNIT/0.01 ML UNIT SQ SCH ×4 (08:58→21:33)
[2021-07-06] MEDS: CARVEDILOL 6.25 MG TABLET PO SCH ×2 (08:58→16:42)
[2021-07-06] MEDS ORDERED: ENOXAPARIN 40 MG/0.4 ML SYRINGE SQ SCH (09:00)
[2021-07-06] MEDS: TAMSULOSIN 0.4 MG CAPSULE PO SCH (10:23)
[2021-07-06] MEDS: GABAPENTIN 300 MG CAPSULE PO SCH ×2 (10:23→20:35)
[2021-07-06] MEDS: FAMOTIDINE 20 MG TABLET PO SCH (10:23)
[2021-07-06] MEDS: HEPARIN 5,000 UNIT/ML VIAL SQ SCH ×2 (10:27→20:35)
--- NOTE | 2021-07-06 12:35 | Internal Med Progress Note ---
SUBJECTIVE Subjective Patient information: Note initiated : 07/06/21 at 12:33 pm Service Date, if different from initiated Date: [] Patient: Rudy Ro 65 y/o M admitted on 07/05/21 for Weakness. Chief Complaint: [AMS] Principal diagnosis: Diabetic ketoacidosis, ADRYAN Interval history: The patient is looking much better. He was calm, cooperative and polite. He was apologetic from the remarks he made yesterday. Social work will speak with him regarding disposition. Discharge home is likely not an option given the level of uncleanliness. Constitutional Vitals: Vital Signs Temp Pulse Resp BP Pulse Ox 98.9 F 96 H 16 124/79 96 07/06/21 12:01 07/06/21 08:01 07/06/21 12:01 07/06/21 12:01 07/06/21 12:01 Period Temp Pulse Resp BP Sys/Arthur Pulse Ox Last 24 Hr 97.5 F-99.8 F 83-102 15-35 111-150/60-108 89-99 Intake and Output 07/05/21 07/06/21 07/06/21 21:59 05:59 13:59 Intake Total 827 1480 1170 Output Total 490 302 500 Balance 337 1178 670 Weight 77.882 kg Intake & Output: Intake & Output 07/05/21 07/06/21 07/06/21 21:59 05:59 13:59 Intake Total 827 1480 1170 Output Total 490 302 500 Balance 337 1178 670 Weight 77.882 kg Intake: IV 727 1000 Sodium Chloride 0.9% 1,000 ml @ 1000 100 mls/hr IV .Q10H SARY Rx#: [id number] HumuLIN R 50 UNIT In Sodium 27 Chloride 0.9% 99.5 ml @ Per Protocol IV ONCE ONE Rx#: [id number] NaCl 0.9% W/KCl 20Meq 1000ML 1, 700 000 ml @ 150 mls/hr IV .Q6H40M SARY Rx#:[id number] Oral 369 [id number] Output: Void Amount 365 300 425 # of times incontinent of urine 2 Urine/Stool Mix 125 75 Other: Meal Dinner Breakfast Percent of Meal Consumed 75% 100% Feeding Ability Independent Independent Urine Appearance Clear Clear Clear Urine Color Bright Yellow Bright Yellow Bright Yellow Urine Odor Normal Normal Stool Size Moderate Large Stool Color Brown Brown Stool Consistency Loose Loose # Voids 1 # Bowel Movements 1 1 Head Head exam: Present atraumatic and normal inspection Eye Eye exam: Present normal appearance ENT ENT exam: Present mucous membranes moist, normal exam and normal external ear exam Neck Neck exam: Present normal inspection Respiratory Respiratory exam: Present normal respiratory exam Cardiovascular Cardiovascular exam: Present normal rate and rhythm GI/Abdominal GI/Abdominal exam: Present normal bowel sounds Back Exam Back exam: Present normal inspection Neurological Exam Neurological exam: Present alert and oriented X3 Skin Skin exam: Present intact and warm OBJ DATA Labs CBC & Chem 7: 07/06/21 05:19 07/06/21 05:19 Labs: Abnormal Lab Results 07/06/21 07/06/21 07/05/21 05:19 05:19 12:34 RBC 4.26 L Hgb 11.6 L Hct 38.9 L MCHC 29.8 L RDW 18.4 H MPV POC VBG pCO2 at Temp POC VBG HCO3 POC VBG Total CO2 POC VBG Base Excess POC Sodium Sodium 130 L Chloride 109 H Carbon Dioxide 19 L Anion Gap POC BUN BUN 27 H 37 H Creatinine 1.6 H 2.2 H POC Creatinine Glucose 154 H 577 H* POC Glucose Osmolality POC Venous Lactate Calcium 7.9 L 8.2 L POC WB Ioniz Calcium Magnesium Direct Bilirubin Alkaline Phosphatase Beta-Hydroxybutyrate Urine Appearance Urine Protein Urine Glucose (UA) Urine Ketones Ur Leukocyte Esterase 07/05/21 07/05/21 07/05/21 12:20 08:24 08:23 RBC Hgb Hct MCHC RDW MPV POC VBG pCO2 at Temp 38.8 L POC VBG HCO3 20.4 L POC VBG Total CO2 22.0 L POC VBG Base Excess -6.0 L POC Sodium 124 L Sodium Chloride Carbon Dioxide Anion Gap POC BUN 44 H BUN Creatinine POC Creatinine 2.6 H Glucose POC Glucose > 700 H* Osmolality POC Venous Lactate 2.1 H Calcium POC WB Ioniz Calcium 1.06 L Magnesium Direct Bilirubin Alkaline Phosphatase Beta-Hydroxybutyrate Urine Appearance Hazy A Urine Protein 100 A Urine Glucose (UA) >=500 A Urine Ketones 5 A Ur Leukocyte Esterase 75 A 07/05/21 07/05/21 07/05/21 08:20 08:20 08:20 RBC Hgb Hct MCHC RDW MPV POC VBG pCO2 at Temp POC VBG HCO3 POC VBG Total CO2 POC VBG Base Excess POC Sodium Sodium 125 L 123 L Chloride 88 L 87 L Carbon Dioxide 14 L 17 L Anion Gap 23.0 H 19.0 H POC BUN BUN 41 H Creatinine 2.4 H POC Creatinine Glucose 900 H* POC Glucose Osmolality 329 H POC Venous Lactate Calcium POC WB Ioniz Calcium Magnesium 2.8 H Direct Bilirubin Alkaline Phosphatase Beta-Hydroxybutyrate Urine Appearance Urine Protein Urine Glucose (UA) Urine Ketones Ur Leukocyte Esterase 07/05/21 07/05/21 08:20 08:20 RBC Hgb Hct MCHC 30.3 L RDW 18.2 H MPV 10.6 H POC VBG pCO2 at Temp POC VBG HCO3 POC VBG Total CO2 POC VBG Base Excess POC Sodium Sodium Chloride Carbon Dioxide Anion Gap POC BUN BUN Creatinine POC Creatinine Glucose POC Glucose Osmolality POC Venous Lactate Calcium POC WB Ioniz Calcium Magnesium Direct Bilirubin 0.3 H Alkaline Phosphatase 122 H Beta-Hydroxybutyrate 1.49 H Urine Appearance Urine Protein Urine Glucose (UA) Urine Ketones Ur Leukocyte Esterase Meds: Medications Albuterol Sulfate (Albuterol Sulfate 200 Puff Inhaler) 2 puff IH Q6HP PRN PRN Reason: wheezing Carvedilol (Carvedilol 6.25 Mg Tablet) 6.25 mg PO BIDCC [facility] Last Admin: 07/06/21 08:58 Dose: 6.25 mg Documented by: Diagnostic Test (Pha) (Accu-Chek 1 Each Strip) 1 each FS ACHS [facility] Last Admin: 07/06/21 12:10 Dose: 1 each Documented by: Famotidine (Famotidine 20 Mg Tablet) 20 mg PO QDAY [facility] Last Admin: 07/06/21 10:23 Dose: 20 mg Documented by: Gabapentin (Gabapentin 300 Mg Capsule) 300 mg PO BID [facility] Last Admin: 07/06/21 10:23 Dose: 300 mg Documented by: Heparin Sodium (Porcine) (Heparin 5,000 Unit/Ml Vial) 5,000 unit SQ Q12 [facility] Last Admin: 07/06/21 10:27 Dose: Not Given Documented by: Sodium Chloride (Sodium Chloride 0.9%) 1,000 mls @ 100 mls/hr IV .Q10H [facility] Last Admin: 07/06/21 02:59 Dose: 100 mls/hr Documented by: Insulin Human Regular 50 unit/ (Sodium Chloride) 100 mls @ 18 mls/hr IV Q24HP PRN; Protocol PRN Reason: HYPERGLYCEMIA Insulin Glargine (Insulin Glargine, Human 1 Unit/0.01 Ml) 35 unit SQ HS [facility] Insulin Human Lispro (Insulin Lispro 1 Unit/0.01 Ml Unit) 0 unit SQ ACHS [facility]; Protocol Last Admin: 07/06/21 12:32 Dose: 10 units Documented by: Ondansetron HCl (Ondansetron 4 Mg/2 Ml Vial) 4 mg IV Q4-6HP PRN; Protocol PRN Reason: Nausea And Vomiting Budesonide- Formoterol 160-4.5 Mcg/Actuation Hfa Inhaler 2 dose INH BID [facility] Last Admin: 07/06/21 08:30 Dose: Not Given Documented by: Senna (Sennosides 1 Tablet) 2 tab PO HSP PRN PRN Reason: Constipation Sodium Chloride (0.9 % Sodium Chloride 10 Ml Syringe) 10 ml IV Q8 [facility] Last Admin: 07/06/21 05:35 Dose: 10 ml Documented by: Tamsulosin HCl (Tamsulosin 0.4 Mg Capsule) 0.8 mg PO QAM [facility] Last Admin: 07/06/21 10:23 Dose: 0.8 mg Documented by: Tramadol HCl (Tramadol 50 Mg Tablet) 50 mg PO TIDP PRN PRN Reason: Pain Last Admin: 07/05/21 21:05 Dose: 50 mg Documented by: A/P Assessment and plan (1) Hyperosmolar hyperglycemic state (HHS): Status: Acute (2) Lumbar radiculopathy: Status: Chronic (3) Cervical radiculopathy: Status: Chronic (4) Hypertension, essential: Status: Chronic (5) Hyperlipidemia: Status: Chronic (6) High anion gap metabolic acidosis: Status: Acute (7) ADRYAN (acute kidney injury): Status: Acute (8) Lactic acidosis: Status: Acute Narrative A/P Narrative: The patient likely developed HON K/DKA in the setting of medication noncomplian ce. It is unclear if the patient has full insight to his condition. Plan of Treatment: The patient will be placed on an insulin infusion and have his blood sugar checked every hour while in the ICU. We will monitor closely until his anion gap closes. We will monitor his potassium closely as well. If it falls below 3.3, will replete. The patient was given 10 units of insulin in the insulin infusion will be at 0.5 units/kg/h. If his blood sugar is below 150 but he has a persistently elevated anion gap, may add glucose. There is no proven benefit of bicarbonate infusion with a pH of greater than 6.9. Total body phosphate deficit through serum phosphate may be higher normal and will decrease with insulin. In the setting of acute kidney injury we will aggressively replace volume with colloids. The patient was resistant to getting a second IV. His home diuretic therapy and lisinopril will be held. 07/06: The patient's anion gap has resolved to 10. His blood sugars have improved significantly as has his mental status. His insulin drip has been discontinued since yesterday and he will be started on Lantus 35 units and insulin sliding scale. IV fluids can be discontinued shortly as his creatinine is also improved to 1.6. Social work and case management are working on disposition options. Time Spent With Patient Time: Total time spent is greater than 50% in coordination of care (as documented) at patient's floor/unit and/or counseling patient: Total time spent with greater than 50% in coordination of care (as documented) at patient's floor/unit and/or counseling patient:: 25 - 35 minutes Critical Care Time: Yes Total Critical Care Time: 30 QUALITY VTE Deep Vein Thrombosis/Pulmonary Embolism Present on Admission: No
[2021-07-06] MEDS: INSULIN GLARGINE, HUMAN 1 UNIT/0.01 ML SQ SCH (21:33)
[2021-07-07] MEDS: 0.9 % SODIUM CHLORIDE 1,000 ML IV SCH ×4 (00:26→19:49)
[2021-07-07] MEDS: 0.9 % SODIUM CHLORIDE 10 ML SYRINGE IV SCH ×3 (04:36→22:06)
[2021-07-07] MEDS: INSULIN LISPRO 1 UNIT/0.01 ML UNIT SQ SCH ×4 (07:13→22:05)
[2021-07-07] MEDS: GABAPENTIN 300 MG CAPSULE PO SCH ×2 (08:44→22:06)
[2021-07-07] MEDS: CARVEDILOL 6.25 MG TABLET PO SCH ×2 (08:44→17:04)
[2021-07-07] MEDS: TAMSULOSIN 0.4 MG CAPSULE PO SCH (08:44)
[2021-07-07] MEDS: FAMOTIDINE 20 MG TABLET PO SCH (08:44)
[2021-07-07] MEDS: HEPARIN 5,000 UNIT/ML VIAL SQ SCH ×2 (08:44→22:04)
[2021-07-07 09:34] LABS: Blood Urea Nitrogen 24 mg/dL (8-23); Calcium 8.4 mg/dL (8.6-10.4); Carbon Dioxide 23 mmol/L (22-30); Chloride 107 mmol/L (96-108); Glomerular Filtration Rate 44; Glucose 243 mg/dL (70-105)
--- NOTE | 2021-07-07 10:42 | Internal Med Progress Note ---
SUBJECTIVE Subjective Patient information: Note initiated : 07/07/21 at 10:41 am Service Date, if different from initiated Date: [as above] Patient: Rudy Ro 65 y/o M admitted on 07/06/21 for Weakness. Chief Complaint: [AMS] Principal diagnosis: Diabetic ketoacidosis, ADRYAN Interval history: The patient is resting comfortably in bed. He has no active complaints or concerns. He was seen by social work yesterday and we are waiting [facility]. He worked well with physical therapy this morning. Constitutional Vitals: Vital Signs Temp Pulse Resp BP Pulse Ox 98 F 102 H 16 128/77 92 07/07/21 06:44 07/07/21 03:48 07/07/21 06:44 07/07/21 06:44 07/07/21 06:44 Period Temp Pulse Resp BP Sys/Arthur Pulse Ox Last 24 Hr 97.5 F-98.9 F 96-102 16-20 113-135/63-79 91-96 Intake and Output 07/06/21 07/07/21 07/07/21 21:59 05:59 13:59 Intake Total 1200 832 Output Total 1 4 Balance -1 1196 832 Weight 83.234 kg Intake & Output: Intake & Output 07/06/21 07/07/21 07/07/21 21:59 05:59 13:59 Intake Total 1200 832 Output Total 1 4 Balance -1 1196 832 Weight 83.234 kg Intake: IV 1000 832 Sodium Chloride 0.9% 1,000 ml @ 1000 832 100 mls/hr IV .Q10H [facility] Rx#: [id number] Oral 200 Output: # of times incontinent of urine 1 4 Other: Meal Nourishment/Supplement Percent of Meal Consumed 75% Feeding Ability Independent Urine Appearance Clear Clear Urine Color Pale Pale # Voids 1 Head Head exam: Present atraumatic and normal inspection Eye Eye exam: Present normal appearance ENT ENT exam: Present mucous membranes moist, normal exam and normal external ear exam Neck Neck exam: Present normal inspection Respiratory Respiratory exam: Present normal respiratory exam Cardiovascular Cardiovascular exam: Present normal rate and rhythm GI/Abdominal GI/Abdominal exam: Present normal bowel sounds Back Exam Back exam: Present normal inspection Neurological Exam Neurological exam: Present alert and oriented X3 Skin Skin exam: Present intact and warm OBJ DATA Labs CBC & Chem 7: 07/06/21 05:19 07/07/21 08:50 Labs: Abnormal Lab Results 07/07/21 07/06/21 07/06/21 08:50 05:19 05:19 RBC 4.26 L Hgb 11.6 L Hct 38.9 L MCHC 29.8 L RDW 18.4 H MPV POC VBG pCO2 at Temp POC VBG HCO3 POC VBG Total CO2 POC VBG Base Excess POC Sodium Sodium Chloride 109 H Carbon Dioxide 19 L Anion Gap 6.0 L POC BUN BUN 24 H 27 H Creatinine 1.6 H 1.6 H POC Creatinine Glucose 243 H 154 H POC Glucose Osmolality POC Venous Lactate Calcium 8.4 L 7.9 L POC WB Ioniz Calcium Magnesium Direct Bilirubin Alkaline Phosphatase Beta-Hydroxybutyrate Urine Appearance Urine Protein Urine Glucose (UA) Urine Ketones Ur Leukocyte Esterase 07/05/21 07/05/21 07/05/21 12:34 12:20 08:24 RBC Hgb Hct MCHC RDW MPV POC VBG pCO2 at Temp 38.8 L POC VBG HCO3 20.4 L POC VBG Total CO2 22.0 L POC VBG Base Excess -6.0 L POC Sodium Sodium 130 L Chloride Carbon Dioxide Anion Gap POC BUN BUN 37 H Creatinine 2.2 H POC Creatinine Glucose 577 H* POC Glucose Osmolality POC Venous Lactate 2.1 H Calcium 8.2 L POC WB Ioniz Calcium Magnesium Direct Bilirubin Alkaline Phosphatase Beta-Hydroxybutyrate Urine Appearance Hazy A Urine Protein 100 A Urine Glucose (UA) >=500 A Urine Ketones 5 A Ur Leukocyte Esterase 75 A 07/05/21 07/05/21 07/05/21 08:23 08:20 08:20 RBC Hgb Hct MCHC RDW MPV POC VBG pCO2 at Temp POC VBG HCO3 POC VBG Total CO2 POC VBG Base Excess POC Sodium 124 L Sodium 125 L 123 L Chloride 88 L 87 L Carbon Dioxide 14 L 17 L Anion Gap 23.0 H 19.0 H POC BUN 44 H BUN 41 H Creatinine 2.4 H POC Creatinine 2.6 H Glucose 900 H* POC Glucose > 700 H* Osmolality POC Venous Lactate Calcium POC WB Ioniz Calcium 1.06 L Magnesium 2.8 H Direct Bilirubin Alkaline Phosphatase Beta-Hydroxybutyrate Urine Appearance Urine Protein Urine Glucose (UA) Urine Ketones Ur Leukocyte Esterase 07/05/21 07/05/21 07/05/21 08:20 08:20 08:20 RBC Hgb Hct MCHC 30.3 L RDW 18.2 H MPV 10.6 H POC VBG pCO2 at Temp POC VBG HCO3 POC VBG Total CO2 POC VBG Base Excess POC Sodium Sodium Chloride Carbon Dioxide Anion Gap POC BUN BUN Creatinine POC Creatinine Glucose POC Glucose Osmolality 329 H POC Venous Lactate Calcium POC WB Ioniz Calcium Magnesium Direct Bilirubin 0.3 H Alkaline Phosphatase 122 H Beta-Hydroxybutyrate 1.49 H Urine Appearance Urine Protein Urine Glucose (UA) Urine Ketones Ur Leukocyte Esterase Meds: Medications Albuterol Sulfate (Albuterol Sulfate 200 Puff Inhaler) 2 puff IH Q6HP PRN PRN Reason: wheezing Carvedilol (Carvedilol 6.25 Mg Tablet) 6.[address] [facility] Last Admin: 07/07/21 08:44 Dose: 6.25 mg Documented by: Diagnostic Test (Pha) (Accu-Chek 1 Each Strip) [address] [facility] Last Admin: 07/07/21 07:12 Dose: 1 each Documented by: Famotidine (Famotidine 20 Mg Tablet) [address] [facility] Last Admin: 07/07/21 08:44 Dose: 20 mg Documented by: Gabapentin (Gabapentin 300 Mg Capsule) [address] [facility] Last Admin: 07/07/21 08:44 Dose: 300 mg Documented by: Heparin Sodium (Porcine) (Heparin 5,000 Unit/Ml Vial) 5,[address] [facility] Last Admin: 07/07/21 08:44 Dose: 5,000 unit Documented by: Sodium Chloride (Sodium Chloride 0.9%) 1,000 mls @ 100 mls/hr IV .Q10H [facility] Last Infusion: 07/07/21 08:45 Dose: Infused Documented by: Insulin Human Regular 50 unit/ (Sodium Chloride) 100 mls @ 18 mls/hr IV Q24HP PRN; Protocol PRN Reason: HYPERGLYCEMIA Insulin Glargine (Insulin Glargine, Human 1 Unit/0.01 Ml) [address] [facility] Last Admin: 07/06/21 21:33 Dose: 35 units Documented by: Insulin Human Lispro (Insulin Lispro 1 Unit/0.01 Ml Unit) 0 unit SQ [facility]; Protocol Last Admin: 07/07/21 07:13 Dose: 6 units Documented by: Ondansetron HCl (Ondansetron 4 Mg/2 Ml Vial) 4 mg IV Q4-6HP PRN; Protocol PRN Reason: Nausea And Vomiting Budesonide- Formoterol 160-4.5 Mcg/Actuation Hfa Inhaler [address] [facility] Last Admin: 07/07/21 08:46 Dose: Not Given Documented by: Senna (Sennosides 1 Tablet) 2 tab PO HSP PRN PRN Reason: Constipation Sodium Chloride (0.9 % Sodium Chloride 10 Ml Syringe) [address] [facility] Last Admin: 07/07/21 04:36 Dose: 10 ml Documented by: Tamsulosin HCl (Tamsulosin 0.4 Mg Capsule) 0.[address] [facility] Last Admin: 07/07/21 08:44 Dose: 0.8 mg Documented by: Tramadol HCl (Tramadol 50 Mg Tablet) 50 mg PO TIDP PRN PRN Reason: Pain Last Admin: 07/05/21 21:05 Dose: 50 mg Documented by: A/P Assessment and plan (1) Hyperosmolar hyperglycemic state (HHS): Status: Acute (2) Lumbar radiculopathy: Status: Chronic (3) Cervical radiculopathy: Status: Chronic (4) Hypertension, essential: Status: Chronic (5) Hyperlipidemia: Status: Chronic (6) High anion gap metabolic acidosis: Status: Acute (7) ADRYAN (acute kidney injury): Status: Acute (8) Lactic acidosis: Status: Acute Narrative A/P Narrative: The patient likely developed HON K/DKA in the setting of medication noncomp liance. It is unclear if the patient has full insight to his condition. Plan of Treatment: The patient will be placed on an insulin infusion and have his blood sugar checked every hour while in the ICU. We will monitor closely until his anion gap closes. We will monitor his potassium closely as well. If it falls below 3.3, will replete. The patient was given 10 units of insulin in the insulin infusion will be at 0.5 units/kg/h. If his blood sugar is below 150 but he has a persistently elevated anion gap, may add glucose. There is no proven benefit of bicarbonate infusion with a pH of greater than 6.9. Total body phosphate deficit through serum phosphate may be higher normal and will decrease with insulin. In the setting of acute kidney injury we will aggressively replace volume with colloids. The patient was resistant to getting a second IV. His home diuretic therapy and lisinopril will be held. 07/06: The patient's anion gap has resolved to 10. His blood sugars have improved significantly as has his mental status. His insulin drip has been discontinued since yesterday and he will be started on Lantus 35 units and insulin sliding scale. IV fluids can be discontinued shortly as his creatinine is also improved to 1.6. Social work and case management are working on disposition options. 07/07: The patient will continue insulin sliding scale and Lantus. [facility] is [facility] to [facility]. Time Spent With Patient Time: Total time spent is greater than 50% in coordination of care (as documented) at patient's floor/unit and/or counseling patient: Total time spent with greater than 50% in coordination of care (as documented) at patient's floor/unit and/or counseling patient:: 25 - 35 minutes QUALITY VTE Deep Vein Thrombosis/Pulmonary Embolism Present on Admission: No
[2021-07-07] MEDS: INSULIN GLARGINE, HUMAN 1 UNIT/0.01 ML SQ SCH (22:05)
[2021-07-08] MEDS: 0.9 % SODIUM CHLORIDE 10 ML SYRINGE IV SCH ×3 (07:04→21:35)
[2021-07-08] MEDS: 0.9 % SODIUM CHLORIDE 1,000 ML IV SCH ×2 (07:33→16:47)
[2021-07-08] MEDS: INSULIN LISPRO 1 UNIT/0.01 ML UNIT SQ SCH ×4 (07:33→21:31)
[2021-07-08] MEDS: CARVEDILOL 6.25 MG TABLET PO SCH ×2 (07:34→16:51)
[2021-07-08] MEDS: HEPARIN 5,000 UNIT/ML VIAL SQ SCH ×2 (08:41→21:28)
[2021-07-08] MEDS: TAMSULOSIN 0.4 MG CAPSULE PO SCH (08:41)
[2021-07-08] MEDS: FAMOTIDINE 20 MG TABLET PO SCH (08:41)
[2021-07-08] MEDS: GABAPENTIN 300 MG CAPSULE PO SCH ×2 (08:41→21:32)
[2021-07-08 09:44] LABS: Blood Urea Nitrogen 17 mg/dL (8-23); Calcium 8.4 mg/dL (8.6-10.4); Carbon Dioxide 22 mmol/L (22-30); Chloride 110 mmol/L (96-108); Glomerular Filtration Rate 51; Glucose 226 mg/dL (70-105)
[2021-07-08] MEDS: IPRATROPIUM/ALBUTEROL 3 ML AMPUL.NEB NEB PRN ×2 (09:49→09:51)
--- NOTE | 2021-07-08 11:33 | Internal Med Progress Note ---
SUBJECTIVE Subjective Patient information: Note initiated : 07/08/21 at 11:31 am Service Date, if different from initiated Date: [as above] Patient: Rudy Ro 65 y/o M admitted on 07/06/21 for Weakness. Chief Complaint: [Altered mental status] Principal diagnosis: Diabetic ketoacidosis, ADRYAN Interval history: The patient was resting comfortably in bed. He had no active complaints or concerns. Discussed discharge planning. Constitutional Vitals: Vital Signs Temp Pulse Resp BP Pulse Ox 98.3 F 97 H 16 136/84 94 07/08/21 07:27 07/08/21 09:56 07/08/21 09:56 07/08/21 07:27 07/08/21 09:56 Period Temp Pulse Resp BP Sys/Arthur Pulse Ox Last 24 Hr 97.9 F-98.8 F 97-100 16-20 117-140/66-84 91-97 Intake and Output 07/07/21 07/08/21 07/08/21 21:59 05:59 13:59 Intake Total 1240 1800 Output Total 1 900 1400 Balance 1239 900 -1400 Weight 83.325 kg Intake & Output: Intake & Output 07/07/21 07/08/21 07/08/21 21:59 05:59 13:59 Intake Total 1240 1800 Output Total 1 900 1400 Balance 1239 900 -1400 Weight 83.325 kg Intake: IV 1000 1000 Sodium Chloride 0.9% 1,000 ml @ 1000 1000 100 mls/hr IV .Q10H [facility] Rx#: [id number] Oral 240 800 Output: Urine Catheter Amount 1400 External Urinary Catheter 700 Void Amount 900 # of times incontinent of urine 1 Other: Meal Nourishment/Supplement Breakfast Percent of Meal Consumed 75% 100% Feeding Ability Independent Urine Appearance Clear Clear Clear External Urinary Catheter Clear Urine Color Pale Pale Pale External Urinary Catheter Pale Urine Odor Normal Stool Size Copious Stool Color Brown Stool Consistency Formed # Voids 1 # Bowel Movements 0 1 # of times incontinent of 0 Bowels Head Head exam: Present atraumatic and normal inspection Eye Eye exam: Present normal appearance ENT ENT exam: Present mucous membranes moist, normal exam and normal external ear exam Neck Neck exam: Present normal inspection Respiratory Respiratory exam: Present normal respiratory exam Cardiovascular Cardiovascular exam: Present normal rate and rhythm GI/Abdominal GI/Abdominal exam: Present normal bowel sounds Back Exam Back exam: Present normal inspection Neurological Exam Neurological exam: Present alert and oriented X3 Skin Skin exam: Present intact and warm OBJ DATA Labs CBC & Chem 7: 07/06/21 05:19 07/08/21 08:46 Labs: Abnormal Lab Results 07/08/21 07/07/21 07/06/21 08:46 08:50 05:19 RBC Hgb Hct MCHC RDW Sodium Chloride 110 H 109 H Carbon Dioxide 19 L Anion Gap 6.0 L 6.0 L BUN 24 H 27 H Creatinine 1.4 H 1.6 H 1.6 H Glucose 226 H 243 H 154 H Calcium 8.4 L 8.4 L 7.9 L Urine Appearance Urine Protein Urine Glucose (UA) Urine Ketones Ur Leukocyte Esterase 07/06/21 07/05/21 07/05/21 05:19 12:34 12:20 RBC 4.26 L Hgb 11.6 L Hct 38.9 L MCHC 29.8 L RDW 18.4 H Sodium 130 L Chloride Carbon Dioxide Anion Gap BUN 37 H Creatinine 2.2 H Glucose 577 H* Calcium 8.2 L Urine Appearance Hazy A Urine Protein 100 A Urine Glucose (UA) >=500 A Urine Ketones 5 A Ur Leukocyte Esterase 75 A Meds: Medications Albuterol Sulfate (Albuterol Sulfate 200 Puff Inhaler) 2 puff IH Q6HP PRN PRN Reason: wheezing Albuterol/Ipratropium (Ipratropium/Albuterol 3 Ml Ampul.Neb) 3 ml NEB Q6HP PRN PRN Reason: Shortness Of Breath Last Admin: 07/08/21 09:51 Dose: 3 ml Documented by: Carvedilol (Carvedilol 6.25 Mg Tablet) 6.25 mg PO BIDCC [facility] Last Admin: 07/08/21 07:34 Dose: 6.25 mg Documented by: Diagnostic Test (Pha) (Accu-Chek 1 Each Strip) 1 each FS ACHS [facility] Last Admin: 07/08/21 07:33 Dose: 1 each Documented by: Famotidine (Famotidine 20 Mg Tablet) 20 mg PO QDAY [facility] Last Admin: 07/08/21 08:41 Dose: 20 mg Documented by: Gabapentin (Gabapentin 300 Mg Capsule) 300 mg PO BID [facility] Last Admin: 07/08/21 08:41 Dose: 300 mg Documented by: Heparin Sodium (Porcine) (Heparin 5,000 Unit/Ml Vial) 5,000 unit SQ Q12 [facility] Last Admin: 07/08/21 08:41 Dose: 5,000 unit Documented by: Sodium Chloride (Sodium Chloride 0.9%) 1,000 mls @ 100 mls/hr IV .Q10H [facility] Last Admin: 07/08/21 07:33 Dose: 100 mls/hr Documented by: Insulin Human Regular 50 unit/ (Sodium Chloride) 100 mls @ 18 mls/hr IV Q24HP PRN; Protocol PRN Reason: HYPERGLYCEMIA Insulin Glargine (Insulin Glargine, Human 1 Unit/0.01 Ml) 45 unit SQ HS [facility] Insulin Human Lispro (Insulin Lispro 1 Unit/0.01 Ml Unit) 0 unit SQ ACHS [facility]; Protocol Last Admin: 07/08/21 07:33 Dose: 4 units Documented by: Ondansetron HCl (Ondansetron 4 Mg/2 Ml Vial) 4 mg IV Q4-6HP PRN; Protocol PRN Reason: Nausea And Vomiting Budesonide- Formoterol 160-4.5 Mcg/Actuation Hfa Inhaler 2 dose INH BID [facility] Last Admin: 07/08/21 08:44 Dose: Not Given Documented by: Senna (Sennosides 1 Tablet) 2 tab PO HSP PRN PRN Reason: Constipation Sodium Chloride (0.9 % Sodium Chloride 10 Ml Syringe) 10 ml IV Q8 [facility] Last Admin: 07/08/21 07:04 Dose: Not Given Documented by: Tamsulosin HCl (Tamsulosin 0.4 Mg Capsule) 0.8 mg PO QAM [facility] Last Admin: 07/08/21 08:41 Dose: 0.8 mg Documented by: Tramadol HCl (Tramadol 50 Mg Tablet) 50 mg PO TIDP PRN PRN Reason: Pain Last Admin: 07/05/21 21:05 Dose: 50 mg Documented by: A/P Assessment and plan (1) Hyperosmolar hyperglycemic state (HHS): Status: Acute (2) Lumbar radiculopathy: Status: Chronic (3) Cervical radiculopathy: Status: Chronic (4) Hypertension, essential: Status: Chronic (5) Hyperlipidemia: Status: Chronic (6) High anion gap metabolic acidosis: Status: Acute (7) ADRYAN (acute kidney injury): Status: Acute (8) Lactic acidosis: Status: Acute Narrative A/P Narrative: The patient likely developed HON K/DKA in the setting of medication noncompliance. It is unclear if the patient has full insight to his condition. Plan of Treatment: The patient will be placed on an insulin infusion and have his blood sugar checked every hour while in the ICU. We will monitor closely until his anion gap closes. We will monitor his potassium closely as well. If it falls below 3.3, will replete. The patient was given 10 units of insulin in the insulin infusion will be at 0.5 units/kg/h. If his blood sugar is below 150 but he has a persistently elevated anion gap, may add glucose. There is no proven benefit of bicarbonate infusion with a pH of greater than 6.9. Total body phosphate deficit through serum phosphate may be higher normal and will decrease with insulin. In the setting of acute kidney injury we will aggressively replace volume with colloids. The patient was resistant to getting a second IV. His home diuretic therapy and lisinopril will be held. 07/06: The patient's anion gap has resolved to 10. His blood sugars have improved significantly as has his mental status. His insulin drip has been discontinued since yesterday and he will be started on Lantus 35 units and insulin sliding scale. IV fluids can be discontinued shortly as his creatinine is also improved to 1.6. Social work and case management are working on disposition options. 07/07: The patient will continue insulin sliding scale and Lantus. He is currently awaiting [facility] to [facility]. 07/08: The patient's most recent blood sugars have been elevated at 243 and 226. I have increased his Lantus from 35 units to 45 units. We will continue insulin sliding scale. We will have further updates tomorrow morning regarding his disposition. Time Spent With Patient Time: Total time spent is greater than 50% in coordination of care (as documented) at patient's floor/unit and/or counseling patient: Total time spent with greater than 50% in coordination of care (as documented) at patient's floor/unit and/or counseling patient:: 25 - 35 minutes QUALITY VTE Deep Vein Thrombosis/Pulmonary Embolism Present on Admission: No
[2021-07-08] MEDS ORDERED: INSULIN GLARGINE, HUMAN 1 UNIT/0.01 ML SQ SCH (21:00)
[2021-07-09] MEDS: 0.9 % SODIUM CHLORIDE 1,000 ML IV SCH ×3 (02:49→21:57)
[2021-07-09] MEDS: 0.9 % SODIUM CHLORIDE 10 ML SYRINGE IV SCH ×3 (04:47→21:57)
[2021-07-09] MEDS: INSULIN LISPRO 1 UNIT/0.01 ML UNIT SQ SCH ×4 (07:36→21:56)
[2021-07-09] MEDS: GABAPENTIN 300 MG CAPSULE PO SCH ×2 (08:08→21:56)
[2021-07-09] MEDS: CARVEDILOL 6.25 MG TABLET PO SCH ×2 (08:08→17:03)
[2021-07-09] MEDS: FAMOTIDINE 20 MG TABLET PO SCH (08:08)
[2021-07-09] MEDS: HEPARIN 5,000 UNIT/ML VIAL SQ SCH ×2 (08:08→21:55)
[2021-07-09] MEDS: TAMSULOSIN 0.4 MG CAPSULE PO SCH (08:08)
--- NOTE | 2021-07-09 12:21 | Internal Med Progress Note ---
SUBJECTIVE Subjective Patient information: Note initiated : 07/09/21 at 12:18 pm Service Date, if different from initiated Date: [as above] Patient: Rudy Ro 65 y/o M admitted on 07/06/21 for Weakness. Chief Complaint: [ALOC] Principal diagnosis: Diabetic ketoacidosis, ADRYAN Interval history: The patient was resting comfortably in bed. We discussed his insulin regimen at home. We discussed disposition. Social work continues to work on this. Constitutional Vitals: Vital Signs Temp Pulse Resp BP Pulse Ox 98.1 F 98 H 18 145/77 96 07/09/21 11:50 07/09/21 11:50 07/09/21 11:50 07/09/21 11:50 07/09/21 11:50 Period Temp Pulse Resp BP Sys/Arthur Pulse Ox Last 24 Hr 98 F-98.4 F 75-107 129-164/70-88 90-96 Intake and Output 07/08/21 07/09/21 07/09/21 21:59 05:59 13:59 Intake Total 1253 1240 1002 Output Total 0450 433 8270 Balance -297 565 -1698 Weight 84.538 kg Intake & Output: Intake & Output 07/08/21 07/09/21 07/09/21 21:59 05:59 13:59 Intake Total 1253 1240 1002 Output Total 2414 874 3896 Balance -297 565 -1698 Weight 84.538 kg Intake: IV 923 1000 742 Sodium Chloride 0.9% 1,000 ml @ 923 1000 742 100 mls/hr IV .Q10H [facility] Rx#: [id number] Oral 330 240 260 Output: Urine Catheter Amount 1800 External Urinary Catheter 900 Void Amount 1550 675 900 # of times incontinent of urine 0 Other: Meal Breakfast Percent of Meal Consumed 100% Feeding Ability Independent Urine Appearance Clear Clear Clear External Urinary Catheter Clear Urine Color Bright Yellow Pale Pale External Urinary Catheter Pale Urine Odor Normal Normal Normal Stool Size Moderate Large Stool Color Brown Brown Yellow Stool Consistency Loose Normal for Patient Soft Formed # Voids 1 1 # Bowel Movements 1 1 Head Head exam: Present atraumatic and normal inspection Eye Eye exam: Present normal appearance ENT ENT exam: Present mucous membranes moist, normal exam and normal external ear exam Neck Neck exam: Present normal inspection Respiratory Respiratory exam: Present normal respiratory exam Cardiovascular Cardiovascular exam: Present normal rate and rhythm GI/Abdominal GI/Abdominal exam: Present normal bowel sounds Back Exam Back exam: Present normal inspection Neurological Exam Neurological exam: Present alert and oriented X3 Skin Skin exam: Present intact and warm OBJ DATA Labs CBC & Chem 7: 07/06/21 05:19 07/08/21 08:46 Labs: Abnormal Lab Results 07/08/21 07/07/21 08:46 08:50 Chloride 110 H Anion Gap 6.0 L 6.0 L BUN 24 H Creatinine 1.4 H 1.6 H Glucose 226 H 243 H Calcium 8.4 L 8.4 L Meds: Medications Albuterol Sulfate (Albuterol Sulfate 200 Puff Inhaler) 2 puff IH Q6HP PRN PRN Reason: wheezing Albuterol/Ipratropium (Ipratropium/Albuterol 3 Ml Ampul.Neb) 3 ml NEB Q6HP PRN PRN Reason: Shortness Of Breath Last Admin: 07/08/21 09:51 Dose: 3 ml Documented by: Carvedilol (Carvedilol 6.25 Mg Tablet) 6.25 mg PO BIDCC [facility] Last Admin: 07/09/21 08:08 Dose: 6.25 mg Documented by: Diagnostic Test (Pha) (Accu-Chek 1 Each Strip) 1 each FS ACHS [facility] Last Admin: 07/09/21 11:41 Dose: 1 each Documented by: Famotidine (Famotidine 20 Mg Tablet) 20 mg PO QDAY [facility] Last Admin: 07/09/21 08:08 Dose: 20 mg Documented by: Gabapentin (Gabapentin 300 Mg Capsule) 300 mg PO BID [facility] Last Admin: 07/09/21 08:08 Dose: 300 mg Documented by: Heparin Sodium (Porcine) (Heparin 5,000 Unit/Ml Vial) 5,000 unit SQ Q12 [facility] Last Admin: 07/09/21 08:08 Dose: 5,000 unit Documented by: Sodium Chloride (Sodium Chloride 0.9%) 1,000 mls @ 100 mls/hr IV .Q10H [facility] Last Admin: 07/09/21 11:42 Dose: Not Given Documented by: Insulin Human Regular 50 unit/ (Sodium Chloride) 100 mls @ 18 mls/hr IV Q24HP PRN; Protocol PRN Reason: HYPERGLYCEMIA Insulin Glargine (Insulin Glargine, Human 1 Unit/0.01 Ml) 45 unit SQ [facility] Last Admin: 07/08/21 21:31 Dose: 45 units Documented by: Insulin Human Lispro (Insulin Lispro 1 Unit/0.01 Ml Unit) [address] [facility]; Protocol Last Admin: 07/09/21 11:41 Dose: 8 units Documented by: Ondansetron HCl (Ondansetron 4 Mg/2 Ml Vial) 4 mg IV Q4-6HP PRN; Protocol PRN Reason: Nausea And Vomiting Budesonide- Formoterol 160-4.5 Mcg/Actuation Hfa Inhaler 2 dose INH BID [facility] Last Admin: 07/09/21 08:09 Dose: Not Given Documented by: Senna (Sennosides 1 Tablet) 2 tab PO HSP PRN PRN Reason: Constipation Sodium Chloride (0.9 % Sodium Chloride 10 Ml Syringe) 10 ml IV Q8 [facility] Last Admin: 07/09/21 04:47 Dose: Not Given Documented by: Tamsulosin HCl (Tamsulosin 0.4 Mg Capsule) 0.8 mg PO QAM [facility] Last Admin: 07/09/21 08:08 Dose: 0.8 mg Documented by: Tramadol HCl (Tramadol 50 Mg Tablet) 50 mg PO TIDP PRN PRN Reason: Pain Last Admin: 07/05/21 21:05 Dose: 50 mg Documented by: A/P Assessment and plan (1) Hyperosmolar hyperglycemic state (HHS): Status: Acute (2) Lumbar radiculopathy: Status: Chronic (3) Cervical radiculopathy: Status: Chronic (4) Hypertension, essential: Status: Chronic (5) Hyperlipidemia: Status: Chronic (6) High anion gap metabolic acidosis: Status: Acute (7) ADRYAN (acute kidney injury): Status: Acute (8) Lactic acidosis: Status: Acute Narrative A/P Narrative: The patient likely developed HON K/DKA in the setting of medication noncompliance. It is unclear if the patient has full insight to his condition. Plan of Treatment: The patient will be placed on an insulin infusion and have his blood sugar checked every hour while in the ICU. We will monitor closely until his anion gap closes. We will monitor his potassium closely as well. If it falls below 3.3, will replete. The patient was given 10 units of insulin in the insulin infusion will be at 0.5 units/kg/h. If his blood sugar is below 150 but he has a persistently elevated anion gap, may add glucose. There is no proven benefit of bicarbonate infusion with a pH of greater than 6.9. Total body phosphate deficit through serum phosphate may be higher normal and will decrease with insulin. In the setting of acute kidney injury we will aggressively replace volume with colloids. The patient was resistant to getting a second IV. His home diuretic therapy and lisinopril will be held. 07/06: The patient's anion gap has resolved to 10. His blood sugars have improved significantly as has his mental status. His insulin drip has been discontinued since yesterday and he will be started on Lantus 35 units and insulin sliding scale. IV fluids can be discontinued shortly as his creatinine is also improved to 1.6. Social work and case management are working on disposition options. 07/07: The patient will continue insulin sliding scale and Lantus. He is currently [facility]. 07/08: The patient's most recent blood sugars have been elevated at 243 and 226. I have increased his Lantus from 35 units to 45 units. We will continue insulin sliding scale. We will have further updates tomorrow morning regarding his disposition. 07/09: The patient's blood sugar this morning was 250 and his Lantus will be further increased to 15 units which is close to his home dose. We will continue insulin sliding scale. Per my discussion with social work, we are looking for a penitentiary facility in [place]. Time Spent With Patient Time: Total time spent is greater than 50% in coordination of care (as documented) at patient's floor/unit and/or counseling patient: Total time spent with greater than 50% in coordination of care (as documented) at patient's floor/unit and/or counseling patient:: 25 - 35 minutes QUALITY VTE Deep Vein Thrombosis/Pulmonary Embolism Present on Admission: No
[2021-07-09] MEDS: traMADol 50 MG TABLET PO PRN (13:14)
[2021-07-09] MEDS: INSULIN GLARGINE, HUMAN 1 UNIT/0.01 ML SQ SCH (21:56)
[2021-07-10] MEDS: 0.9 % SODIUM CHLORIDE 10 ML SYRINGE IV SCH ×3 (05:14→22:46)
[2021-07-10] MEDS: INSULIN LISPRO 1 UNIT/0.01 ML UNIT SQ SCH ×4 (07:44→22:45)
[2021-07-10] MEDS: HEPARIN 5,000 UNIT/ML VIAL SQ SCH ×2 (07:44→23:02)
[2021-07-10] MEDS: TAMSULOSIN 0.4 MG CAPSULE PO SCH (07:44)
[2021-07-10] MEDS: GABAPENTIN 300 MG CAPSULE PO SCH ×2 (07:45→23:02)
[2021-07-10] MEDS: CARVEDILOL 6.25 MG TABLET PO SCH ×2 (07:45→16:12)
[2021-07-10] MEDS: FAMOTIDINE 20 MG TABLET PO SCH (07:45)
[2021-07-10] MEDS: 0.9 % SODIUM CHLORIDE 1,000 ML IV SCH (10:31)
--- NOTE | 2021-07-10 11:26 | Internal Med Progress Note ---
SUBJECTIVE Subjective Patient information: Note initiated : 07/10/21 at 11:24 am Service Date, if different from initiated Date: [as above] Patient: Rudy Ro 65 y/o M admitted on 07/06/21 for Weakness. Chief Complaint: [] Principal diagnosis: Diabetic ketoacidosis, ADRYAN Interval history: The patient is resting comfortably in bed. We discussed disposition. His blood sugars are better controlled. Constitutional Vitals: Vital Signs Temp Pulse Resp BP Pulse Ox 98.1 F 101 H 13 126/77 91 07/10/21 07:27 07/10/21 07:27 07/10/21 07:27 07/10/21 07:27 07/10/21 07:27 Period Temp Pulse Resp BP Sys/Arthur Pulse Ox Last 24 Hr 98.0 F-98.7 F 96-106 13-20 126-145/72-80 91-96 Intake and Output 07/09/21 07/10/21 07/10/21 21:59 05:59 13:59 Intake Total 390 Output Total 575 400 Balance -575 -10 Weight 83.189 kg Intake & Output: Intake & Output 07/09/21 07/10/21 07/10/21 21:59 05:59 13:59 Intake Total 390 Output Total 575 400 Balance -575 -10 Weight 83.189 kg Intake: Oral 390 Output: Urine Catheter Amount 400 Void Amount 575 Other: Meal Crackers (8), PB (2), Jelly (Sugarfree 2) Percent of Meal Consumed 100% Feeding Ability Independent Urine Appearance Clear Clear Urine Color Pale Pale Urine Odor Normal Head Head exam: Present atraumatic and normal inspection Eye Eye exam: Present normal appearance ENT ENT exam: Present mucous membranes moist, normal exam and normal external ear exam Neck Neck exam: Present normal inspection Respiratory Respiratory exam: Present normal respiratory exam Cardiovascular Cardiovascular exam: Present normal rate and rhythm GI/Abdominal GI/Abdominal exam: Present normal bowel sounds Back Exam Back exam: Present normal inspection Neurological Exam Neurological exam: Present alert and oriented X3 Skin Skin exam: Present intact and warm OBJ DATA Labs CBC & Chem 7: 07/06/21 05:19 07/08/21 08:46 Labs: Abnormal Lab Results 07/08/21 08:46 Chloride 110 H Anion Gap 6.0 L Creatinine 1.4 H Glucose 226 H Calcium 8.4 L Meds: Medications Albuterol Sulfate (Albuterol Sulfate 200 Puff Inhaler) 2 puff IH Q6HP PRN PRN Reason: wheezing Albuterol/Ipratropium (Ipratropium/Albuterol 3 Ml Ampul.Neb) 3 ml NEB Q6HP PRN PRN Reason: Shortness Of Breath Last Admin: 07/08/21 09:51 Dose: 3 ml Documented by: Carvedilol (Carvedilol 6.25 Mg Tablet) 6.25 mg PO BIDCC [facility] Last Admin: 07/10/21 07:45 Dose: 6.25 mg Documented by: Diagnostic Test (Pha) (Accu-Chek 1 Each Strip) 1 each FS ACHS [facility] Last Admin: 07/10/21 07:44 Dose: 1 each Documented by: Famotidine (Famotidine 20 Mg Tablet) 20 mg PO QDAY [facility] Last Admin: 07/10/21 07:45 Dose: 20 mg Documented by: Gabapentin (Gabapentin 300 Mg Capsule) 300 mg PO BID [facility] Last Admin: 07/10/21 07:45 Dose: 300 mg Documented by: Heparin Sodium (Porcine) (Heparin 5,000 Unit/Ml Vial) 5,000 unit SQ Q12 [facility] Last Admin: 07/10/21 07:44 Dose: 5,000 unit Documented by: Sodium Chloride (Sodium Chloride 0.9%) 1,000 mls @ 100 mls/hr IV .Q10H [facility] Last Admin: 07/10/21 10:31 Dose: Not Given Documented by: Insulin Human Regular 50 unit/ (Sodium Chloride) 100 mls @ 18 mls/hr IV Q24HP PRN; Protocol PRN Reason: HYPERGLYCEMIA Insulin Glargine (Insulin Glargine, Human 1 Unit/0.01 Ml) 50 unit SQ HS [facility] Last Admin: 07/09/21 21:56 Dose: 550 units Documented by: Insulin Human Lispro (Insulin Lispro 1 Unit/0.01 Ml Unit) 0 unit SQ [facility]; Protocol Last Admin: 07/10/21 07:44 Dose: 4 units Documented by: Ondansetron HCl (Ondansetron 4 Mg/2 Ml Vial) 4 mg IV Q4-6HP PRN; Protocol PRN Reason: Nausea And Vomiting Budesonide- Formoterol 160-4.5 Mcg/Actuation Hfa Inhaler 2 dose INH BID [facility] Last Admin: 07/10/21 07:45 Dose: Not Given Documented by: Senna (Sennosides 1 Tablet) 2 tab PO HSP PRN PRN Reason: Constipation Sodium Chloride (0.9 % Sodium Chloride 10 Ml Syringe) 10 ml IV Q8 [facility] Last Admin: 07/10/21 05:14 Dose: 10 ml Documented by: Tamsulosin HCl (Tamsulosin 0.4 Mg Capsule) 0.8 mg PO QAM [facility] Last Admin: 07/10/21 07:44 Dose: 0.8 mg Documented by: Tramadol HCl (Tramadol 50 Mg Tablet) 50 mg PO TIDP PRN PRN Reason: Pain Last Admin: 07/09/21 13:14 Dose: 50 mg Documented by: A/P Assessment and plan (1) Hyperosmolar hyperglycemic state (HHS): Status: Acute (2) Lumbar radiculopathy: Status: Chronic (3) Cervical radiculopathy: Status: Chronic (4) Hypertension, essential: Status: Chronic (5) Hyperlipidemia: Status: Chronic (6) High anion gap metabolic acidosis: Status: Acute (7) ADRYAN (acute kidney injury): Status: Acute (8) Lactic acidosis: Status: Acute Narrative A/P Narrative: The patient likely developed HON K/DKA in the setting of medication noncompliance. It is unclear if the patient has full insight to his condition. Plan of Treatment: The patient will be placed on an insulin infusion and have his blood sugar checked every hour while in the ICU. We will monitor closely until his anion gap closes. We will monitor his potassium closely as well. If it falls below 3.3, will replete. The patient was given 10 units of insulin in the insulin infusion will be at 0.5 units/kg/h. If his blood sugar is below 150 but he has a persistently elevated anion gap, may add glucose. There is no proven benefit of bicarbonate infusion with a pH of greater than 6.9. Total body phosphate deficit through serum phosphate may be higher normal and will decrease with insulin. In the setting of acute kidney injury we will aggressively replace volume with colloids. The patient was resistant to getting a second IV. His home diuretic therapy and lisinopril will be held. 07/06: The patient's anion gap has resolved to 10. His blood sugars have improved significantly as has his mental status. His insulin drip has been discontinued since yesterday and he will be started on Lantus 35 units and insulin sliding scale. IV fluids can be discontinued shortly as his creatinine is also improved to 1.6. Social work and case management are working on disposition options. 07/07: The patient will continue insulin sliding scale and Lantus. He is currently awaiting discharge to [facility] facility. 07/08: The patient's most recent blood sugars have been elevated at 243 and 226. I have increased his Lantus from 35 units to 45 units. We will continue insulin sliding scale. We will have further updates tomorrow morning regarding his disposition. 07/09: The patient's blood sugar this morning was 250 and his Lantus will be further increased to 15 units which is close to his home dose. We will continue insulin sliding scale. Per my discussion with social work, we are looking for a penitentiary facility in [place]. 07/10: Unfortunately there is an APS investigation regarding has home living standards. There is concerns for component of developmental delay and lack of insight to his condition. 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 He is medically optimized for discharge at this point. Time Spent With Patient Time: Total time spent is greater than 50% in coordination of care (as documented) at patient's floor/unit and/or counseling patient: Total time spent with greater than 50% in coordination of care (as documented) at patient's floor/unit and/or counseling patient:: 25 - 35 minutes QUALITY VTE Deep Vein Thrombosis/Pulmonary Embolism Present on Admission: No
--- NOTE | 2021-07-10 13:33 | Internal Med Progress Note ---
SUBJECTIVE Subjective Patient information: Note initiated : 07/10/21 at 1:27 pm Service Date, if different from initiated Date: [] Patient: Rudy Ro a 65 y/o M admitted on 07/06/21 for Weakness. Chief Complaint: [] Principal diagnosis: Diabetic ketoacidosis, ADRYAN Interval history: Mr. Ro is a 65 year old M with a past medical history significant for insulin-dependent diabetes who presents to the hospital with significant hyperglycemia. The patient is incredibly poor historian, and was agitated. Racist remarks were sad and was unclear if he wanted me to look after him as his physician. On presentation, he was hemodynamically stable and afebrile. He was found to have a blood sugar greater than 700, lactic acid of 2.1, creatinine of 2.6, and an anion gap of 23. The patient was being hospitalized for further management evaluation of his DKA. 07/06: The patient's anion gap has resolved to 10. His blood sugars have improved significantly as has his mental status. His insulin drip has been discontinued since yesterday and he will be started on Lantus 35 units and insulin sliding scale. IV fluids can be discontinued shortly as his creatinine is also improved to 1.6. Social work and case management are working on disposition options. 07/07: The patient will continue insulin sliding scale and Lantus. He is currently awaiting discharge to penit[facility] facility. 07/08: The patient's most recent blood sugars have been elevated at 243 and 226. I have increased his Lantus from 35 units to 45 units. We will continue insulin sliding scale. We will have further updates tomorrow morning regarding his disposition. 07/09: The patient's blood sugar this morning was 250 and his Lantus will be further increased to 15 units which is close to his home dose. We will continue insulin sliding scale. Per my discussion with social work, we are looking for a penitentiary facility in [place]. 07/10: Unfortunately there is an APS investigation regarding has home living standards. There is concerns for component of developmental delay and lack of insight to his condition. 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 He is medically optimized for discharge at this point. 07/11 Constitutional Vitals: Vital Signs Temp Pulse Resp BP Pulse Ox 97.8 F 105 H 15 134/78 97 07/10/21 11:43 07/10/21 11:43 07/10/21 11:43 07/10/21 11:43 07/10/21 11:43 Period Temp Pulse Resp BP Sys/Arthur Pulse Ox Last 24 Hr 97.8 F-98.7 F 96-106 13-20 126-140/72-80 91-97 Intake and Output 07/09/21 07/10/21 07/10/21 21:59 05:59 13:59 Intake Total 390 Output Total 575 400 Balance -575 -10 Weight 83.189 kg Intake & Output: Intake & Output 07/09/21 07/10/21 07/10/21 21:59 05:59 13:59 Intake Total 390 Output Total 575 400 Balance -575 -10 Weight 83.189 kg Intake: Oral 390 Output: Urine Catheter Amount 400 Void Amount 575 Other: Meal Crackers (8), PB (2), Jelly (Sugarfree 2) Percent of Meal Consumed 100% Feeding Ability Independent Urine Appearance Clear Clear Urine Color Pale Pale Urine Odor Normal Exam: General: Alert, Awake, No acute Distress Eyes/N/T: EOMI, Head/Neck: neck supple, CV: RRR, No murmurs, Pulm: Clear b/l, no wheezing/rhonchi/rales Abd: soft, nontender, +BS x4 Ext: no clubbing/cyanosis/edema Neuro: Alert, no focal deficits, moves all extremities, Skin: warm/dry OBJ DATA Labs CBC & Chem 7: 07/06/21 05:19 07/08/21 08:46 Labs: Abnormal Lab Results 07/08/21 08:46 Chloride 110 H Anion Gap 6.0 L Creatinine 1.4 H Glucose 226 H Calcium 8.4 L Meds: Medications Albuterol Sulfate (Albuterol Sulfate 200 Puff Inhaler) 2 puff IH Q6HP PRN PRN Reason: wheezing Albuterol/Ipratropium (Ipratropium/Albuterol 3 Ml Ampul.Neb) 3 ml NEB Q6HP PRN PRN Reason: Shortness Of Breath Last Admin: 07/08/21 09:51 Dose: 3 ml Documented by: Carvedilol (Carvedilol 6.25 Mg Tablet) 6.25 mg PO BIDCC [facility] Last Admin: 07/10/21 07:45 Dose: 6.25 mg Documented by: Diagnostic Test (Pha) (Accu-Chek 1 Each Strip) 1 each FS ACHS [facility] Last Admin: 07/10/21 11:30 Dose: 1 each Documented by: Famotidine (Famotidine 20 Mg Tablet) 20 mg PO QDAY [facility] Last Admin: 07/10/21 07:45 Dose: 20 mg Documented by: Gabapentin (Gabapentin 300 Mg Capsule) 300 mg PO BID [facility] Last Admin: 07/10/21 07:45 Dose: 300 mg Documented by: Heparin Sodium (Porcine) (Heparin 5,000 Unit/Ml Vial) 5,000 unit SQ Q12 [facility] Last Admin: 07/10/21 07:44 Dose: 5,000 unit Documented by: Sodium Chloride (Sodium Chloride 0.9%) 1,000 mls @ 100 mls/hr IV .Q10H [facility] Last Admin: 07/10/21 10:31 Dose: Not Given Documented by: Insulin Human Regular 50 unit/ (Sodium Chloride) 100 mls @ 18 mls/hr IV Q24HP PRN; Protocol PRN Reason: HYPERGLYCEMIA Insulin Glargine (Insulin Glargine, Human 1 Unit/0.01 Ml) 50 unit SQ [facility] Last Admin: 07/09/21 21:56 Dose: 550 units Documented by: Insulin Human Lispro (Insulin Lispro 1 Unit/0.01 Ml Unit) 0 unit SQ [facility]; Protocol Last Admin: 07/10/21 11:30 Dose: 4 units Documented by: Ondansetron HCl (Ondansetron 4 Mg/2 Ml Vial) 4 mg IV Q4-6HP PRN; Protocol PRN Reason: Nausea And Vomiting Budesonide- Formoterol 160-4.5 Mcg/Actuation Hfa Inhaler 2 dose INH BID [facility] Last Admin: 07/10/21 07:45 Dose: Not Given Documented by: Senna (Sennosides 1 Tablet) 2 tab PO HSP PRN PRN Reason: Constipation Sodium Chloride (0.9 % Sodium Chloride 10 Ml Syringe) 10 ml IV Q8 [facility] Last Admin: 07/10/21 05:14 Dose: 10 ml Documented by: Tamsulosin HCl (Tamsulosin 0.4 Mg Capsule) 0.8 mg PO QAM [facility] Last Admin: 07/10/21 07:44 Dose: 0.8 mg Documented by: Tramadol HCl (Tramadol 50 Mg Tablet) 50 mg PO TIDP PRN PRN Reason: Pain Last Admin: 07/09/21 13:14 Dose: 50 mg Documented by: A/P Narrative A/P Narrative: A: *HHS/DKA: *Lumbar/cervical radiculopathy: *HTN/HLD *ADRYAN on CKD III: 2/2 above *Lactic acidosis: 2/2 above * *GERD: *COPD: *VAHID: Does not tolerate CPAP P: -Basal and SSI -Monitor electrolytes closely and replete as needed -Continue home BB -Continue home inhalers - -CM for placement -ppx: Heparin /home H2 Time Spent With Patient Time: Total time spent is greater than 50% in coordination of care (as documented) at patient's floor/unit and/or counseling patient: QUALITY VTE Deep Vein Thrombosis/Pulmonary Embolism Present on Admission: No
--- NOTE | 2021-07-10 13:34 | Discharge Summary ---
Discharge Provider Provider Patient information: Note initiated : 07/10/21 at 1:33 pm Service Date, if different from initiated Date: [] Patient: Rudy Ro 65 y/o M admitted on 07/06/21 for Weakness. Chief Complaint: [] Date of admission: 07/06/21 10:37 Primary care physician: Unknown Unknown Consults: 07/05/21 Consult to Physician [CONS] Stat Comment: Consulting Provider: Diomedes Thomson Reason For Exam: Physician to Consult Discharge Meds Discharge Medications Home Medications alcohol swabs (BD Alcohol Swabs) See Rx Instructions TOPICAL .COMPLEX 01/20/18 [History Confirmed 07/05/21 Last Taken Unknown] cholecalciferol (vitamin D3) 50 mcg (2,000 unit) capsule 2,000 unit PO QDAY 01/20/18 [History Confirmed 07/05/21 Last Taken Unknown] zinc acetate 50 mg (zinc) capsule (Galzin) 50 mg PO QDAY 12/15/19 [History Confirmed 07/05/21 Last Taken Unknown] acetaminophen 650 mg tablet,extended release (Tylenol Arthritis Pain) 1 tab PO Q4HP PRN 07/05/21 [History Confirmed 07/05/21 Last Taken Unknown] albuterol sulfate 90 mcg/actuation aerosol inhaler 2 puff PO Q6HP PRN 07/05/21 [History Confirmed 07/05/21 Last Taken Unknown] budesonide-formoterol HFA 160 mcg-4.5 mcg/actuation aerosol inhaler 2 puff CONTINUOUS INHALATION BID 07/05/21 [History Confirmed 07/05/21 Last Taken Unknown] carvedilol 6.25 mg tablet 1 tab PO BIDAC 07/05/21 [History Confirmed 07/05/21 Last Taken Unknown] cyclobenzaprine 10 mg tablet 1 tab PO HSP PRN 07/05/21 [History Confirmed 07/05/21 Last Taken Unknown] famotidine 20 mg tablet 1 tab PO QDAY 07/05/21 [History Confirmed 07/05/21 Last Taken Unknown] flash glucose sensor (FreeStyle Ed 2 Sensor) 07/05/21 [History Confirmed 07/05/21 Last Taken Unknown] gabapentin 300 mg capsule 1 cap PO BID 07/05/21 [History Confirmed 07/05/21 Last Taken Unknown] insulin glargine U-300 conc 300 unit/mL (3 mL) subcutaneous pen (Jenny Max U- 300 SoloStar) 50 unit SUBCUT HS 07/05/21 [History Confirmed 07/05/21 Last Taken Unknown] insulin lispro 100 unit/mL subcutaneous pen See Rx Instructions .ROUTE .COMPLEX 07/05/21 [History Confirmed 07/05/21 Last Taken Unknown] primidone 250 mg tablet See Rx Instructions .ROUTE .COMPLEX 07/05/21 [History Confirmed 07/05/21 Last Taken Unknown] tamsulosin 0.4 mg capsule 2 cap PO QAM 07/05/21 [History Confirmed 07/05/21 Last Taken Unknown] tramadol 50 mg tablet 50 mg PO TID 07/05/21 [History Confirmed 07/05/21 Last Taken Unknown] vitamin B complex-vitamin C-folic acid 0.8 mg tablet (Jolly-Blayne) 1 tab PO QDAY 07/05/21 [History Confirmed 07/05/21 Last Taken Unknown] COURSE Hospital Course Hospital course: Mr. Ro is a 65 year old M with a past medical history significant for insulin-dependent diabetes who presents to the hospital with significant hyperglycemia. The patient is incredibly poor historian, and was agitated. Racist remarks were sad and was unclear if he wanted me to look after him as his physician. On presentation, he was hemodynamically stable and afebrile. He was found to have a blood sugar greater than 700, lactic acid of 2.1, creatinine of 2.6, and an anion gap of 23. The patient was being hospitalized for further management evaluation of his DKA. 07/06: The patient's anion gap has resolved to 10. His blood sugars have improved significantly as has his mental status. His insulin drip has been discontinued since yesterday and he will be started on Lantus 35 units and insulin sliding scale. IV fluids can be discontinued shortly as his creatinine is also improved to 1.6. Social work and case management are working on disposition options. 07/07: The patient will continue insulin sliding scale and Lantus. He is currently awaiting discharge to half-way facility. 07/08: The patient's most recent blood sugars have been elevated at 243 and 226. I have increased his Lantus from 35 units to 45 units. We will continue insulin sliding scale. We will have further updates tomorrow morning regarding his disposition. 5/16: The patient's blood sugar this morning was 250 and his Lantus will be further increased to 15 units which is close to his home dose. We will continue insulin sliding scale. Per my discussion with social work, we are looking for a half-way facility in [place]. 07/10: Unfortunately there is an APS investigation regarding has home living standards. There is concerns for component of developmental delay and lack of insight to his condition. 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 He is medically optimized for discharge at this point. 07/11 A: *HHS/DKA: *Lumbar/cervical radiculopathy: *HTN/HLD *ADRYAN on CKD III: 2/2 above *Lactic acidosis: 2/2 above * *GERD: *COPD: *VAHID: Does not tolerate CPAP P: -Basal and SSI -CM for placement Discharge diagnosis: DKA HHS Secondary discharge diagnosis: Radiculopathy hypertension acute kidney injury lactic acidosis GERD COPD VAHID Time Spent with Patient Time attestation: Total time spent providing and/or coordinating discharge services: Time spent: Greater than 30 minutes EXAM Constitutional Vitals: Temp Pulse Resp BP Pulse Ox 97.8 F 105 H 15 134/78 97 07/10/21 11:43 07/10/21 11:43 07/10/21 11:43 07/10/21 11:43 07/10/21 11:43 Discharge Plan Patient/Caregiver Discharge Instructions Activity: increase activity as tolerated Diet: Consistent Carbohydrate Activity Restrictions/Additional Instructions: Follow-up with PCP in 3 to 7 days Prescriptions: Continued alcohol swabs [BD Alcohol Swabs] pads, medicated See Rx Instructions TOPICAL .COMPLEX 0RF Label Comments: TOPICAL as directed; Rx Instructions: TOPICAL as directed; cholecalciferol (vitamin D3) 2,000 unit capsule 2,000 unit PO QDAY 0RF Galzin 50 mg (zinc) capsule 50 mg PO QDAY 0RF Rx Instructions: swallow whole; do not chew/break/dissolve/open carvedilol 6.25 mg tablet 1 tab PO BIDAC 0RF budesonide-formoterol 160-4.5 mcg/actuation HFA aerosol inhaler 2 puff continuous inhalation BID 0RF albuterol sulfate 90 mcg/actuation HFA aerosol inhaler 2 puff PO Q6HP PRN (Reason: wheezing) 0RF cyclobenzaprine 10 mg tablet 1 tab PO HSP PRN (Reason: Muscle Spasm) 0RF tramadol 50 mg tablet 50 mg PO TID 0RF Label Comments: [NO ORIGINAL SIG] acetaminophen [Tylenol Arthritis Pain] 650 mg tablet extended release 1 tab PO Q4HP PRN (Reason: Pain) 0RF famotidine 20 mg tablet 1 tab PO QDAY 0RF tamsulosin 0.4 mg capsule 2 cap PO QAM 0RF gabapentin 300 mg capsule 1 cap PO BID 0RF insulin lispro 100 unit/mL insulin pen See Rx Instructions sliding scale dose .ROUTE .COMPLEX 0RF Rx Instructions: Inject per sliding scale with meals and bedtime (DME) FreeStyle Ed 2 Sensor Kit MISCELLANEOUS 0RF Label Comments: [NO ORIGINAL SIG] Toujeo Max U-300 SoloStar 300 unit/mL (3 mL) insulin pen 50 unit subcut HS 0RF primidone 250 mg tablet See Rx Instructions .ROUTE .COMPLEX 0RF Rx Instructions: Take 1 tablet by mouth every morning and 1/2 tablet by mouth in the evening Jolly-Blayne 0.8 mg Tablet 1 tab PO QDAY 0RF Follow Up Plan Follow up with: Unknown,Unknown [Primary Care Provider] - Patient Disposition: Xfer SNF Prognosis: Undetermined Rehab Potential: Fair I certify that the patient requires SNF services: Yes Overall status at discharge: patient is progressing back to baseline QUALITY VTE Deep Vein Thrombosis/Pulmonary Embolism Present on Admission: No
[2021-07-10] MEDS: INSULIN GLARGINE, HUMAN 1 UNIT/0.01 ML SQ SCH (22:45)
[2021-07-10] MEDS: traMADol 50 MG TABLET PO PRN (23:53)
[2021-07-11] MEDS: 0.9 % SODIUM CHLORIDE 10 ML SYRINGE IV SCH ×4 (05:20→22:11)
[2021-07-11 06:49] LABS: Basophils # (Auto) 0.07 K/mcL (0.00-0.30); Basophils % (Auto) 0.8 % (0.0-2.0); Eosinophils # (Auto) 0.29 K/mcL (0.00-0.70); Eosinophils % (Auto) 3.1 % (0.0-7.0); Hematocrit 43.9 % (40.1-51.0); Hemoglobin 13.6 g/dL (13.7-17.5); Lymphocytes # (Auto) 3.13 K/mcL (1.50-4.80); Lymphocytes % (Auto) 33.7 % (15.5-49.0); Mean Cell Volume 91.6 fL (80.0-100.0); Mean Platelet Volume 10.1 fL (7.4-10.4); Monocytes # (Auto) 0.89 K/mcL (0.10-0.90); Monocytes % (Auto) 9.6 % (1.0-12.0); Neutrophils % (Auto) 52.8 % (38.0-78.0); Platelet Count 524 K/mcL (140-440); RBC 4.79 M/mcL (4.63-6.08); Red Cell Distribution Width 18.2 % (11.5-14.5); WBC 9.3 K/mcL (4.5-11.0)
[2021-07-11] MEDS: INSULIN LISPRO 1 UNIT/0.01 ML UNIT SQ SCH ×4 (07:32→22:10)
[2021-07-11] MEDS: CARVEDILOL 6.25 MG TABLET PO SCH ×2 (07:33→16:48)
[2021-07-11] MEDS: TAMSULOSIN 0.4 MG CAPSULE PO SCH (07:33)
[2021-07-11] MEDS: FAMOTIDINE 20 MG TABLET PO SCH (07:33)
[2021-07-11] MEDS: HEPARIN 5,000 UNIT/ML VIAL SQ SCH ×2 (07:33→22:10)
[2021-07-11] MEDS: GABAPENTIN 300 MG CAPSULE PO SCH ×2 (07:33→22:10)
[2021-07-11 07:43] LABS: ALT/SGPT 14 U/L (<40); AST/SGOT 20 U/L (<40); Albumin 3.3 gm/dL (3.2-5.2); Albumin/Globulin Ratio 1.3 (1.0-2.3); Alkaline Phosphatase 92 U/L (39-117); Bilirubin,Direct < 0.2 mg/dL (0-0.3); Bilirubin,Total < 0.2 mg/dL (0.1-1.0); Blood Urea Nitrogen 19 mg/dL (8-23); Carbon Dioxide 23 mmol/L (22-30); Chloride 100 mmol/L (96-108); Globulin 2.6 gm/dL (2.2-3.7); Glomerular Filtration Rate 51; Glucose 201 mg/dL (70-105); Lactate Dehydrogenase 252 U/L (135-225); Phosphorous 2.2 mg/dL (2.5-4.5); Triglycerides 1409 mg/dL (<150); Uric Acid 6.2 mg/dL (2.5-8.0)
--- NOTE | 2021-07-11 08:25 | Internal Med Progress Note ---
SUBJECTIVE Subjective Patient information: Note initiated : 07/11/21 at 8:19 am Service Date, if different from initiated Date: [] Patient: Rudy Ro a 65 y/o M admitted on 07/06/21 for Weakness. Chief Complaint: [] Principal diagnosis: Diabetic ketoacidosis, ADRYAN Interval history: Mr. Ro is a 65 year old M with a past medical history significant for insulin-dependent diabetes who presents to the hospital with significant hyperglycemia. The patient is incredibly poor historian, and was agitated. Racist remarks were sad and was unclear if he wanted me to look after him as his physician. On presentation, he was hemodynamically stable and afebrile. He was found to have a blood sugar greater than 700, lactic acid of 2.1, creatinine of 2.6, and an anion gap of 23. The patient was being hospitalized for further management evaluation of his DKA. 07/06: The patient's anion gap has resolved to 10. His blood sugars have improved significantly as has his mental status. His insulin drip has been discontinued since yesterday and he will be started on Lantus 35 units and insulin sliding scale. IV fluids can be discontinued shortly as his creatinine is also improved to 1.6. Social work and case management are working on disposition options. 07/07: The patient will continue insulin sliding scale and Lantus. He is currently awaiting discharge to correction facility. 07/08: The patient's most recent blood sugars have been elevated at 243 and 226. I have increased his Lantus from 35 units to 45 units. We will continue insulin sliding scale. We will have further updates tomorrow morning regarding his disposition. 07/09: The patient's blood sugar this morning was 250 and his Lantus will be further increased to 15 units which is close to his home dose. We will continue insulin sliding scale. Per my discussion with social work, we are looking for a correction facility in [place]. 07/10: Unfortunately there is an APS investigation regarding has home living standards. There is concerns for component of developmental delay and lack of insight to his condition. 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 He is medically optimized for discharge at this point. 07/11 Patient says he slept okay for half the night. No new complaints overnight events. Will check A1c. Provide some hot phosphorus replacement. iv lasix for edema. Review of Systems: denies headache/fever/chills/nausea/vomiting/chest or abdominal pain/cough/dyspnea/diarrhea. Otherwise see above. Constitutional Vitals: Vital Signs Temp Pulse Resp BP Pulse Ox 97.8 F 102 H 16 123/80 94 07/11/21 07:16 07/11/21 07:16 07/11/21 07:16 07/11/21 07:16 07/11/21 07:16 Period Temp Pulse Resp BP Sys/Arthur Pulse Ox Last 24 Hr 97.6 F-98.8 F 72-114 13-20 123-140/72-83 91-97 Intake and Output 07/10/21 07/11/21 07/11/21 21:59 05:59 13:59 Intake Total 300 Output Total 350 150 Balance -350 150 Weight 83.552 kg Intake & Output: Intake & Output 07/10/21 07/11/21 07/11/21 21:59 05:59 13:59 Intake Total 300 Output Total 350 150 Balance -350 150 Weight 83.552 kg Intake: Oral 300 Output: Void Amount 350 150 Other: Urine Appearance Clear Clear Urine Color Pale Pale Urine Odor Normal Stool Size Moderate Stool Color Brown Stool Consistency Formed # Voids 1 # Bowel Movements 1 Exam: General: Alert, Awake, No acute Distress Eyes/N/T: EOMI, Head/Neck: neck supple, CV: RRR, No murmurs, Pulm: Clear b/l, no wheezing/rhonchi/rales Abd: soft, nontender, +BS x4 Ext: no clubbing/cyanosis, b/l LE 1-2+ edema Neuro: Alert, no focal deficits, moves all extremities, Skin: warm/dry OBJ DATA Labs CBC & Chem 7: 07/11/21 05:25 07/11/21 05:25 Labs: Abnormal Lab Results 07/11/21 07/11/21 07/08/21 05:25 05:25 08:46 Hgb 13.6 L RDW 18.2 H Plt Count 524 H Chloride 110 H Anion Gap 6.0 L Creatinine 1.4 H 1.4 H Glucose 201 H 226 H Calcium 8.4 L Phosphorus 2.2 L Lactate Dehydrogenase 252 H Triglycerides 1409 H Meds: Medications Albuterol Sulfate (Albuterol Sulfate 200 Puff Inhaler) 2 puff IH Q6HP PRN PRN Reason: wheezing Albuterol/Ipratropium (Ipratropium/Albuterol 3 Ml Ampul.Neb) 3 ml NEB Q6HP PRN PRN Reason: Shortness Of Breath Last Admin: 07/08/21 09:51 Dose: 3 ml Documented by: Carvedilol (Carvedilol 6.25 Mg Tablet) 6.25 mg PO BIDCC [facility] Last Admin: 07/11/21 07:33 Dose: 6.25 mg Documented by: Diagnostic Test (Pha) (Accu-Chek 1 Each Strip) 1 each FS [facility] Last Admin: 07/11/21 07:32 Dose: 1 each Documented by: Famotidine (Famotidine 20 Mg Tablet) 20 mg PO QDAY [facility] Last Admin: 07/11/21 07:33 Dose: 20 mg Documented by: Gabapentin (Gabapentin 300 Mg Capsule) 300 mg PO BID [facility] Last Admin: 07/11/21 07:33 Dose: 300 mg Documented by: Heparin Sodium (Porcine) (Heparin 5,000 Unit/Ml Vial) 5,000 unit SQ Q12 [facility] Last Admin: 07/11/21 07:33 Dose: 5,000 unit Documented by: Insulin Human Regular 50 unit/ (Sodium Chloride) 100 mls @ 18 mls/hr IV Q24HP PRN; Protocol PRN Reason: HYPERGLYCEMIA Insulin Glargine (Insulin Glargine, Human 1 Unit/0.01 Ml) 50 unit SQ [facility] Last Admin: 07/10/21 22:45 Dose: 50 units Documented by: Insulin Human Lispro (Insulin Lispro 1 Unit/0.01 Ml Unit) 0 unit SQ [facility]; Protocol Last Admin: 07/11/21 07:32 Dose: 6 units Documented by: Ondansetron HCl (Ondansetron 4 Mg/2 Ml Vial) 4 mg IV Q4-6HP PRN; Protocol PRN Reason: Nausea And Vomiting Budesonide- Formoterol 160-4.5 Mcg/Actuation Hfa Inhaler 2 dose INH BID [facility] Last Admin: 07/11/21 07:34 Dose: Not Given Documented by: Senna (Sennosides 1 Tablet) 2 tab PO HSP PRN PRN Reason: Constipation Sodium Chloride (0.9 % Sodium Chloride 10 Ml Syringe) 10 ml IV Q8 [facility] Last Admin: 07/11/21 05:20 Dose: Not Given Documented by: Tamsulosin HCl (Tamsulosin 0.4 Mg Capsule) 0.8 mg PO QAM [facility] Last Admin: 07/11/21 07:33 Dose: 0.8 mg Documented by: Tramadol HCl (Tramadol 50 Mg Tablet) 50 mg PO TIDP PRN PRN Reason: Pain Last Admin: 07/10/21 23:53 Dose: 50 mg Documented by: A/P Narrative A/P Narrative: A: *HHS/DKA: -A1c *Lumbar/cervical radiculopathy: *HTN/HLD *ADRYAN on CKD III: 2/2 above *Lactic acidosis: 2/2 above *Hypertriglyceridemia: *hypophos *GERD: *COPD: *VAHID: Does not tolerate CPAP P: -Lantus (increase as needed) and SSI -Monitor electrolytes closely and replete as needed -Continue home BB -Continue home inhalers -start Fibrate, check lipid panel -IV lasix for peripheral edema -CM for placement -ppx: Heparin /home H2 Time Spent With Patient Time: Total time spent is greater than 50% in coordination of care (as documented) at patient's floor/unit and/or counseling patient: Total time spent with greater than 50% in coordination of care (as documented) at patient's floor/unit and/or counseling patient:: 25 - 35 minutes QUALITY VTE Deep Vein Thrombosis/Pulmonary Embolism Present on Admission: No
[2021-07-11] MEDS ORDERED: PHOSPHORUS 250 MG TABLET PO SCH (08:30)
[2021-07-11] MEDS ORDERED: INSULIN GLARGINE, HUMAN 1 UNIT/0.01 ML SQ SCH (08:30)
[2021-07-11] MEDS: FENOFIBRATE 43 MG CAPSULE PO SCH (08:58)
[2021-07-11] MEDS ORDERED: FUROSEMIDE 20 MG/2 ML VIAL IV ONE (09:22)
[2021-07-11 09:44] LABS: HDL Cholesterol 23 mg/dL (>40); Non-HDL Cholesterol 269 mg/dL (<130); Triglycerides 1458 mg/dL (<150)
[2021-07-11 11:03] LABS: Hemoglobin A1C 11.1 % Hgb (4.0-6.0)
[2021-07-11] MEDS ORDERED: FUROSEMIDE 40 MG TABLET PO ONE (11:33)
--- NOTE | 2021-07-11 12:28 | Discharge Summary ---
Discharge Provider Provider Patient information: Note initiated : 07/11/21 at 12:26 pm Service Date, if different from initiated Date: [] Patient: Rudy Ro 65 y/o M admitted on 07/06/21 for Weakness. Chief Complaint: [] Date of admission: 07/06/21 10:37 Discharge date: 07/13/21 Primary care physician: Unknown Unknown Consults: 07/05/21 Consult to Physician [CONS] Stat Comment: Consulting Provider: Diomedes Thomson Reason For Exam: Physician to Consult Discharge Meds Discharge Medications Home Medications alcohol swabs (BD Alcohol Swabs) See Rx Instructions TOPICAL .COMPLEX 01/20/18 [History Confirmed 07/05/21 Last Taken Unknown] cholecalciferol (vitamin D3) 50 mcg (2,000 unit) capsule 2,000 unit PO QDAY 01/20/18 [History Confirmed 07/05/21 Last Taken Unknown] zinc acetate 50 mg (zinc) capsule (Galzin) 50 mg PO QDAY 12/15/19 [History Confirmed 07/05/21 Last Taken Unknown] acetaminophen 650 mg tablet,extended release (Tylenol Arthritis Pain) 1 tab PO Q4HP PRN 07/05/21 [History Confirmed 07/05/21 Last Taken Unknown] albuterol sulfate 90 mcg/actuation aerosol inhaler 2 puff PO Q6HP PRN 07/05/21 [History Confirmed 07/05/21 Last Taken Unknown] budesonide-formoterol HFA 160 mcg-4.5 mcg/actuation aerosol inhaler 2 puff CONTINUOUS INHALATION BID 07/05/21 [History Confirmed 07/05/21 Last Taken Unknown] carvedilol 6.25 mg tablet 1 tab PO BIDAC 07/05/21 [History Confirmed 07/05/21 Last Taken Unknown] cyclobenzaprine 10 mg tablet 1 tab PO HSP PRN 07/05/21 [History Confirmed 07/05/21 Last Taken Unknown] famotidine 20 mg tablet 1 tab PO QDAY 07/05/21 [History Confirmed 07/05/21 Last Taken Unknown] flash glucose sensor (FreeStyle Ed 2 Sensor) 07/05/21 [History Confirmed 07/05/21 Last Taken Unknown] gabapentin 300 mg capsule 1 cap PO BID 07/05/21 [History Confirmed 07/05/21 Last Taken Unknown] insulin lispro 100 unit/mL subcutaneous pen See Rx Instructions .ROUTE .COMPLEX 07/05/21 [History Confirmed 07/05/21 Last Taken Unknown] primidone 250 mg tablet See Rx Instructions .ROUTE .COMPLEX 07/05/21 [History Confirmed 07/05/21 Last Taken Unknown] tamsulosin 0.4 mg capsule 2 cap PO QAM 07/05/21 [History Confirmed 07/05/21 Last Taken Unknown] tramadol 50 mg tablet 50 mg PO TID 07/05/21 [History Confirmed 07/05/21 Last Taken Unknown] vitamin B complex-vitamin C-folic acid 0.8 mg tablet (Jolly-Blayne) 1 tab PO QDAY 07/05/21 [History Confirmed 07/05/21 Last Taken Unknown] fenofibrate micronized 43 mg capsule 86 mg PO DAILY #30 cap 07/11/21 [Rx Last Taken Unknown] insulin glargine U-300 conc 300 unit/mL (3 mL) subcutaneous pen (Toujeo Max U- 300 SoloStar) 60 unit (0.2 mL) SUBCUT HS #3 ml 07/13/21 [Rx Last Taken Unknown] COURSE Hospital Course Hospital course: Principal diagnosis: Diabetic ketoacidosis, ADRYAN Interval history: Mr. Ro is a 65 year old M with a past medical history significant for insulin-dependent diabetes who presents to the hospital with significant hyperglycemia. The patient is incredibly poor historian, and was agitated. Racist remarks were sad and was unclear if he wanted me to look after him as his physician. On presentation, he was hemodynamically stable and afebrile. He was found to have a blood sugar greater than 700, lactic acid of 2.1, creatinine of 2.6, and an anion gap of 23. The patient was being hospitalized for further management evaluation of his DKA. 07/06: The patient's anion gap has resolved to 10. His blood sugars have improved significantly as has his mental status. His insulin drip has been discontinued since yesterday and he will be started on Lantus 35 units and insulin sliding scale. IV fluids can be discontinued shortly as his creatinine is also improved to 1.6. Social work and case management are working on disposition options. 07/07: The patient will continue insulin sliding scale and Lantus. He is currently awaiting discharge to fdc facility. 07/08: The patient's most recent blood sugars have been elevated at 243 and 226. I have increased his Lantus from 35 units to 45 units. We will continue insulin sliding scale. We will have further updates tomorrow morning regarding his disposition. 07/09: The patient's blood sugar this morning was 250 and his Lantus will be further increased to 15 units which is close to his home dose. We will continue insulin sliding scale. Per my discussion with social work, we are looking for a fdc facility in [place]. 07/10: Unfortunately there is an APS investigation regarding has home living standards. There is concerns for component of developmental delay and lack of insight to his condition. 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 He is medically optimized for discharge at this point. 07/11 Patient says he slept okay for half the night. No new complaints overnight events. Will check A1c. Provide some hot phosphorus replacement. iv lasix for edema. 07/12 Note overnight event or new complaints. Patient still has some edema legs. Concern for his cognitive ability to care for himself and take medications appropriately. Hemoglobin A1c 11.1 07/13 Blood sugars elevated yesterday and will increase his basal insulin. Although of note nurse noted to sugary muffin in his room but the patient did not say where he got it. We will evaluate the patient for cognitive ability to manage his own diabetes and insulin regimen. Patient demonstrating ability to manage his diabetes A: *HHS/DKA: -A1c 11.1 *Lumbar/cervical radiculopathy: *HTN/HLD *ADRYAN on CKD III: 2/2 above *Lactic acidosis: 2/2 above *Hypertriglyceridemia: *hypophos *GERD: *COPD: *VAHID: Does not tolerate CPAP *Cognitive impairment: Evaluated by OT P: -Lantus (increase as needed) -start Fibrate -DM education -CM for placement Discharge diagnosis: HHS DKA lumbar cervical radiculopathy ADRYAN on CKD lactic acidosis hypertrigl Secondary discharge diagnosis: Hypertriglyceridemia hypophosphatemia GERD COPD obstructive sleep apnea HTN Time Spent with Patient Time attestation: Total time spent providing and/or coordinating discharge services: Time spent: Greater than 30 minutes EXAM Constitutional Vitals: Temp Pulse Resp BP Pulse Ox 97.6 F 98 H 18 153/67 95 07/11/21 11:44 07/11/21 11:44 07/11/21 11:44 07/11/21 11:44 07/11/21 11:44 Discharge Data Data Completed and Pending Labs on day of discharge: Labs from last 24 hours 07/11/21 07/11/21 07/11/21 05:25 05:25 05:25 WBC RBC Hgb Hct MCV MCH MCHC RDW Plt Count MPV Neut % (Auto) Lymph % (Auto) [place] % (Auto) Eos % (Auto) Baso % (Auto) Lymph # (Auto) [place] # (Auto) Eos # (Auto) Baso # (Auto) Absolute Neutrophils Sodium 134 Potassium 4.8 Chloride 100 Carbon Dioxide 23 Anion Gap 11.0 BUN 19 Creatinine 1.4 H GFR Calculation 51 Glucose 201 H Hemoglobin A1c 11.1 H Estim Average Glucose 272 Uric Acid 6.2 Calcium 9.0 Phosphorus 2.2 L Magnesium 1.9 Total Bilirubin < 0.2 Direct Bilirubin < 0.2 GGT 31 AST 20 ALT 14 Alkaline Phosphatase 92 Lactate Dehydrogenase 252 H Total Protein 5.9 Albumin 3.3 Globulin 2.6 Albumin/Globulin Ratio 1.3 Triglycerides 1458 H 1409 H Cholesterol 292 H LDL Cholesterol, Calc TNP Non-HDL Cholesterol 269 H HDL Cholesterol 23 L 07/11/21 05:25 WBC 9.3 RBC 4.79 Hgb 13.6 L Hct 43.9 MCV 91.6 MCH 28.4 MCHC 31.0 RDW 18.2 H Plt Count 524 H MPV 10.1 Neut % (Auto) 52.8 Lymph % (Auto) 33.7 [place] % (Auto) 9.6 Eos % (Auto) 3.1 Baso % (Auto) 0.8 Lymph # (Auto) 3.13 [place] # (Auto) 0.89 Eos # (Auto) 0.29 Baso # (Auto) 0.07 Absolute Neutrophils 4.91 Sodium Potassium Chloride Carbon Dioxide Anion Gap BUN Creatinine GFR Calculation Glucose Hemoglobin A1c Estim Average Glucose Uric Acid Calcium Phosphorus Magnesium Total Bilirubin Direct Bilirubin GGT AST ALT Alkaline Phosphatase Lactate Dehydrogenase Total Protein Albumin Globulin Albumin/Globulin Ratio Triglycerides Cholesterol LDL Cholesterol, Calc Non-HDL Cholesterol HDL Cholesterol Discharge Plan Patient/Caregiver Discharge Instructions Activity: increase activity as tolerated Diet: Consistent Carbohydrate Activity Restrictions/Additional Instructions: Follow-up with PCP in 3 to 7 days Prescriptions: New fenofibrate micronized 43 mg Capsule 86 mg PO DAILY Qty: 30 0RF Continued alcohol swabs [BD Alcohol Swabs] pads, medicated See Rx Instructions TOPICAL .COMPLEX 0RF Label Comments: TOPICAL as directed; Rx Instructions: TOPICAL as directed; cholecalciferol (vitamin D3) 2,000 unit capsule 2,000 unit PO QDAY 0RF Galzin 50 mg (zinc) capsule 50 mg PO QDAY 0RF Rx Instructions: swallow whole; do not chew/break/dissolve/open carvedilol 6.25 mg tablet 1 tab PO BIDAC 0RF budesonide-formoterol 160-4.5 mcg/actuation HFA aerosol inhaler 2 puff continuous inhalation BID 0RF albuterol sulfate 90 mcg/actuation HFA aerosol inhaler 2 puff PO Q6HP PRN (Reason: wheezing) 0RF cyclobenzaprine 10 mg tablet 1 tab PO HSP PRN (Reason: Muscle Spasm) 0RF tramadol 50 mg tablet 50 mg PO TID 0RF Label Comments: [NO ORIGINAL SIG] acetaminophen [Tylenol Arthritis Pain] 650 mg tablet extended release 1 tab PO Q4HP PRN (Reason: Pain) 0RF famotidine 20 mg tablet 1 tab PO QDAY 0RF tamsulosin 0.4 mg capsule 2 cap PO QAM 0RF gabapentin 300 mg capsule 1 cap PO BID 0RF insulin lispro 100 unit/mL insulin pen See Rx Instructions sliding scale dose .ROUTE .COMPLEX 0RF Rx Instructions: Inject per sliding scale with meals and bedtime (DME) FreeStyle Ed 2 Sensor Kit MISCELLANEOUS 0RF Label Comments: [NO ORIGINAL SIG] primidone 250 mg tablet See Rx Instructions .ROUTE .COMPLEX 0RF Rx Instructions: Take 1 tablet by mouth every morning and 1/2 tablet by mouth in the evening Jolly-Blayne 0.8 mg Tablet 1 tab PO QDAY 0RF Changed Toujeo Max U-300 SoloStar 300 unit/mL (3 mL) insulin pen 60 unit subcut HS Qty: 3 0RF Follow Up Plan Follow up with: Unknown,Unknown [Referring] - Patient Disposition: Home Health Service Prognosis: Undetermined Rehab Potential: Fair Overall status at discharge: patient is progressing back to baseline Discharge Orders: Discharge Order (Routine); Ordered 07/13/21 Ordered By: Felice SMITH VTE Deep Vein Thrombosis/Pulmonary Embolism Present on Admission: No
[2021-07-11] MEDS: INSULIN GLARGINE, HUMAN 1 UNIT/0.01 ML SQ SCH (22:10)
[2021-07-12] MEDS: 0.9 % SODIUM CHLORIDE 10 ML SYRINGE IV SCH ×3 (05:27→20:16)
[2021-07-12] MEDS: CARVEDILOL 6.25 MG TABLET PO SCH ×2 (07:33→17:37)
[2021-07-12] MEDS: TAMSULOSIN 0.4 MG CAPSULE PO SCH (07:33)
[2021-07-12] MEDS: FAMOTIDINE 20 MG TABLET PO SCH (07:33)
[2021-07-12] MEDS: HEPARIN 5,000 UNIT/ML VIAL SQ SCH ×2 (07:33→20:15)
[2021-07-12] MEDS: FENOFIBRATE 43 MG CAPSULE PO SCH (07:33)
[2021-07-12] MEDS: GABAPENTIN 300 MG CAPSULE PO SCH ×2 (07:34→20:14)
[2021-07-12] MEDS: INSULIN LISPRO 1 UNIT/0.01 ML UNIT SQ SCH ×4 (07:35→20:15)
[2021-07-12] MEDS ORDERED: FUROSEMIDE 40 MG TABLET PO ONE (11:20)
--- NOTE | 2021-07-12 11:22 | Internal Med Progress Note ---
SUBJECTIVE Subjective Patient information: Note initiated : 07/12/21 at 11:20 am Service Date, if different from initiated Date: [] Patient: Rudy Ro a 65 y/o M admitted on 07/06/21 for Weakness. Chief Complaint: [] Principal diagnosis: Diabetic ketoacidosis, ADRYAN Interval history: Mr. Ro is a 65 year old M with a past medical history significant for insulin-dependent diabetes who presents to the hospital with significant hyperglycemia. The patient is incredibly poor historian, and was agitated. Racist remarks were sad and was unclear if he wanted me to look after him as his physician. On presentation, he was hemodynamically stable and afebrile. He was found to have a blood sugar greater than 700, lactic acid of 2.1, creatinine of 2.6, and an anion gap of 23. The patient was being hospitalized for further management evaluation of his DKA. 07/06: The patient's anion gap has resolved to 10. His blood sugars have improved significantly as has his mental status. His insulin drip has been disc ontinued since yesterday and he will be started on Lantus 35 units and insulin sliding scale. IV fluids can be discontinued shortly as his creatinine is also improved to 1.6. Social work and case management are working on disposition options. 07/07: The patient will continue insulin sliding scale and Lantus. He is currently awaiting discharge to fpc facility. 07/08: The patient's most recent blood sugars have been elevated at 243 and 226. I have increased his Lantus from 35 units to 45 units. We will continue insulin sliding scale. We will have further updates tomorrow morning regarding his disposition. 07/09: The patient's blood sugar this morning was 250 and his Lantus will be further increased to 15 units which is close to his home dose. We will continue insulin sliding scale. Per my discussion with social work, we are looking for a fpc facility in [place]. 07/10: Unfortunately there is an APS investigation regarding has home living standards. There is concerns for component of developmental delay and lack of insight to his condition. kettle worker still working on placement. He is medically optimized for discharge at this point. 07/11 Patient says he slept okay for half the night. No new complaints overnight events. Will check A1c. Provide some hot phosphorus replacement. iv lasix for edema. 07/12 Note overnight event or new complaints. Patient still has some edema legs. Concern for his cognitive ability to care for himself and take medications appropriately. Hemoglobin A1c 11.1 Review of Systems: denies headache/fever/chills/nausea/vomiting/chest or abdominal pain/cough/dyspnea/diarrhea. Otherwise see above. Constitutional Vitals: Vital Signs Temp Pulse Resp BP Pulse Ox 97.1 F 108 H 18 119/75 92 07/12/21 07:25 07/12/21 07:25 07/12/21 07:25 07/12/21 07:25 07/12/21 07:25 Period Temp Pulse Resp BP Sys/Arthur Pulse Ox Last 24 Hr 97 F-98.4 F 83-112 14-19 119-153/67-76 91-95 Intake and Output 07/11/21 07/12/21 07/12/21 21:59 05:59 13:59 Intake Total 360 100 240 Output Total 300 180 Balance 60 100 60 Weight 83.053 kg Intake & Output: Intake & Output 07/11/21 07/12/21 07/12/21 21:59 05:59 13:59 Intake Total 360 100 240 Output Total 300 180 Balance 60 100 60 Weight 83.053 kg Intake: Oral 360 100 240 Output: Void Amount 300 180 Other: Meal Breakfast Percent of Meal Consumed 100% Urine Appearance Clear Clear Urine Color Pale Pale Urine Odor Strong Stool Size Moderate Large Stool Color Brown Stool Consistency Formed Soft # Voids 1 # Bowel Movements 1 2 Exam: General: Alert, Awake, No acute Distress Eyes/N/T: EOMI, Head/Neck: neck supple, CV: RRR, No murmurs, Pulm: Clear b/l, no wheezing/rhonchi/rales Abd: soft, nontender, +BS x4 Ext: no clubbing/cyanosis, b/l LE 1+ edema Neuro: Alert, no focal deficits, moves all extremities, Skin: warm/dry OBJ DATA Labs CBC & Chem 7: 07/11/21 05:25 07/11/21 05:25 Labs: Abnormal Lab Results 07/11/21 07/11/21 07/11/21 05:25 05:25 05:25 Hgb RDW Plt Count Creatinine 1.4 H Glucose 201 H Hemoglobin A1c 11.1 H Phosphorus 2.2 L Lactate Dehydrogenase 252 H Triglycerides 1458 H 1409 H Cholesterol 292 H Non-HDL Cholesterol 269 H HDL Cholesterol 23 L 07/11/21 05:25 Hgb 13.6 L RDW 18.2 H Plt Count 524 H Creatinine Glucose Hemoglobin A1c Phosphorus Lactate Dehydrogenase Triglycerides Cholesterol Non-HDL Cholesterol HDL Cholesterol Meds: Medications Albuterol Sulfate (Albuterol Sulfate 200 Puff Inhaler) 2 puff IH Q6HP PRN PRN Reason: wheezing Albuterol/Ipratropium (Ipratropium/Albuterol 3 Ml Ampul.Neb) 3 ml NEB Q6HP PRN PRN Reason: Shortness Of Breath Last Admin: 07/08/21 09:51 Dose: 3 ml Documented by: Carvedilol (Carvedilol 6.25 Mg Tablet) 6.25 mg PO BIDCC [facility] Last Admin: 07/12/21 07:33 Dose: 6.25 mg Documented by: Diagnostic Test (Pha) (Accu-Chek 1 Each Strip) 1 each FS [facility] Last Admin: 07/12/21 07:20 Dose: 1 each Documented by: Famotidine (Famotidine 20 Mg Tablet) 20 mg PO QDAY [facility] Last Admin: 07/12/21 07:33 Dose: 20 mg Documented by: Fenofibrate (Fenofibrate 43 Mg Capsule) 86 mg PO DAILY [facility] Last Admin: 07/12/21 07:33 Dose: 86 mg Documented by: Gabapentin (Gabapentin 300 Mg Capsule) 300 mg PO BID [facility] Last Admin: 07/12/21 07:34 Dose: 300 mg Documented by: Heparin Sodium (Porcine) (Heparin 5,000 Unit/Ml Vial) 5,000 unit SQ Q12 [facility] Last Admin: 07/12/21 07:33 Dose: 5,000 unit Documented by: Insulin Human Regular 50 unit/ (Sodium Chloride) 100 mls @ 18 mls/hr IV Q24HP PRN; Protocol PRN Reason: HYPERGLYCEMIA Insulin Glargine (Insulin Glargine, Human 1 Unit/0.01 Ml) 50 unit SQ HS [facility] Last Admin: 07/11/21 22:10 Dose: 50 units Documented by: Insulin Human Lispro (Insulin Lispro 1 Unit/0.01 Ml Unit) 0 unit SQ [facility]; Protocol Last Admin: 07/12/21 07:35 Dose: Not Given Documented by: Ondansetron HCl (Ondansetron 4 Mg/2 Ml Vial) 4 mg IV Q4-6HP PRN; Protocol PRN Reason: Nausea And Vomiting Budesonide- Formoterol 160-4.5 Mcg/Actuation Hfa Inhaler 2 dose INH BID [facility] Last Admin: 07/12/21 08:20 Dose: Not Given Documented by: Senna (Sennosides 1 Tablet) 2 tab PO HSP PRN PRN Reason: Constipation Sodium Chloride (0.9 % Sodium Chloride 10 Ml Syringe) 10 ml IV Q8 [facility] Last Admin: 07/12/21 05:27 Dose: Not Given Documented by: Tamsulosin HCl (Tamsulosin 0.4 Mg Capsule) 0.8 mg PO QAM [facility] Last Admin: 07/12/21 07:33 Dose: 0.8 mg Documented by: Tramadol HCl (Tramadol 50 Mg Tablet) 50 mg PO TIDP PRN PRN Reason: Pain Last Admin: 07/10/21 23:53 Dose: 50 mg Documented by: A/P Narrative A/P Narrative: A: *HHS/DKA: -A1c 11.1 *Lumbar/cervical radiculopathy: *HTN/HLD *ADRYAN on CKD III: 2/2 above *Lactic acidosis: 2/2 above *Hypertriglyceridemia: *hypophos *GERD: *COPD: *VAHID: Does not tolerate CPAP *Cognitive impairment: Evaluated by OT P: -Lantus (increase as needed) and SSI -Monitor electrolytes closely and replete as needed -Continue home BB -Continue home inhalers -started Fibrate -IV lasix for peripheral edema -CM for placement -ppx: Heparin /home H2 Time Spent With Patient Time: Total time spent is greater than 50% in coordination of care (as documented) at patient's floor/unit and/or counseling patient: Total time spent with greater than 50% in coordination of care (as documented) at patient's floor/unit and/or counseling patient:: 25 - 35 minutes QUALITY VTE Deep Vein Thrombosis/Pulmonary Embolism Present on Admission: No
[2021-07-12] MEDS: traMADol 50 MG TABLET PO PRN (13:02)
[2021-07-12] MEDS: INSULIN GLARGINE, HUMAN 1 UNIT/0.01 ML SQ SCH (20:14)
[2021-07-13] MEDS: 0.9 % SODIUM CHLORIDE 10 ML SYRINGE IV SCH (07:05)
[2021-07-13] MEDS: INSULIN LISPRO 1 UNIT/0.01 ML UNIT SQ SCH ×2 (07:12→12:00)
[2021-07-13] MEDS: CARVEDILOL 6.25 MG TABLET PO SCH (07:16)
--- NOTE | 2021-07-13 07:53 | Internal Med Progress Note ---
SUBJECTIVE Subjective Patient information: Note initiated : 07/13/21 at 7:51 am Service Date, if different from initiated Date: [] Patient: Rudy Ro a 65 y/o M admitted on 07/06/21 for Weakness. Chief Complaint: [] Principal diagnosis: Diabetic ketoacidosis, ADRYAN Interval history: Mr. Ro is a 65 year old M with a past medical history significant for insulin-dependent diabetes who presents to the hospital with significant hyperglycemia. The patient is incredibly poor historian, and was agitated. Racist remarks were sad and was unclear if he wanted me to look after him as his physician. On presentation, he was hemodynamically stable and afebrile. He was found to have a blood sugar greater than 700, lactic acid of 2.1, creatinine of 2.6, and an anion gap of 23. The patient was being hospitalized for further management evaluation of his DKA. 07/06: The patient's anion gap has resolved to 10. His blood sugars have improved significantly as has his mental status. His insulin drip has been discontinued since yesterday and he will be started on Lantus 35 units and insulin sliding scale. IV fluids can be discontinued shortly as his creatinine is also improved to 1.6. Social work and case management are working on disposition options. 07/07: The patient will continue insulin sliding scale and Lantus. He is currently awaiting discharge to senior care facility. 07/08: The patient's most recent blood sugars have been elevated at 243 and 226. I have increased his Lantus from 35 units to 45 units. We will continue insulin sliding scale. We will have further updates tomorrow morning regarding his disposition. 07/09: The patient's blood sugar this morning was 250 and his Lantus will be further increased to 15 units which is close to his home dose. We will continue insulin sliding scale. Per my discussion with social work, we are looking for a senior care facility in [address]. 07/10: Unfortunately there is an APS investigation regarding has home living standards. There is concerns for component of developmental delay and lack of insight to his condition. blood bank worker still working on placement. He is medically optimized for discharge at this point. 07/11 Patient says he slept okay for half the night. No new complaints overnight events. Will check A1c. Provide some hot phosphorus replacement. iv lasix for edema. 07/12 Note overnight event or new complaints. Patient still has some edema legs. Concern for his cognitive ability to care for himself and take medications appropriately. Hemoglobin A1c 11.1 07/13 Blood sugars elevated yesterday and will increase his basal insulin. Although of note nurse noted to sugary muffin in his room but the patient did not say where he got it. We will evaluate the patient for cognitive ability to manage his own diabetes and insulin regimen. Review of Systems: denies headache/fever/chills/nausea/vomiting/chest or abdominal pain/cough/dyspnea/diarrhea. Otherwise see above. Constitutional Vitals: Vital Signs Temp Pulse Resp BP Pulse Ox 98.0 F 102 H 18 123/73 94 07/13/21 06:44 07/13/21 06:44 07/13/21 06:44 07/13/21 06:44 07/13/21 06:44 Period Temp Pulse Resp BP Sys/Arthur Pulse Ox Last 24 Hr 98 F-98.9 F 102-116 16-20 120-128/69-81 91-94 Intake and Output 07/12/21 07/13/21 07/13/21 21:59 05:59 13:59 Intake Total 1236 Output Total 520 950 Balance -520 286 Weight 82.372 kg Intake & Output: Intake & Output 07/12/21 07/13/21 07/13/21 21:59 05:59 13:59 Intake Total 1236 Output Total 520 950 Balance -520 286 Weight 82.372 kg Intake: Oral 1236 Output: Void Amount 520 950 Other: Urine Appearance Clear Clear Urine Color Bright Yellow Bright Yellow Urine Odor Normal Normal Stool Size Small Stool Color Brown Stool Consistency Formed Watery # Voids 2 Exam: General: Alert, Awake, No acute Distress Eyes/N/T: EOMI, Head/Neck: neck supple, CV: RRR, No murmurs, Pulm: Clear b/l, no wheezing/rhonchi/rales Abd: soft, nontender, +BS x4 Ext: no clubbing/cyanosis, b/l LE 1+ edema Neuro: Alert, no focal deficits, moves all extremities, Skin: warm/dry OBJ DATA Labs CBC & Chem 7: 07/11/21 05:25 07/11/21 05:25 Labs: Abnormal Lab Results 07/11/21 07/11/21 07/11/21 05:25 05:25 05:25 Hgb RDW Plt Count Creatinine 1.4 H Glucose 201 H Hemoglobin A1c 11.1 H Phosphorus 2.2 L Lactate Dehydrogenase 252 H Triglycerides 1458 H 1409 H Cholesterol 292 H Non-HDL Cholesterol 269 H HDL Cholesterol 23 L 07/11/21 05:25 Hgb 13.6 L RDW 18.2 H Plt Count 524 H Creatinine Glucose Hemoglobin A1c Phosphorus Lactate Dehydrogenase Triglycerides Cholesterol Non-HDL Cholesterol HDL Cholesterol Meds: Medications Albuterol Sulfate (Albuterol Sulfate 200 Puff Inhaler) 2 puff IH Q6HP PRN PRN Reason: wheezing Albuterol/Ipratropium (Ipratropium/Albuterol 3 Ml Ampul.Neb) 3 ml NEB Q6HP PRN PRN Reason: Shortness Of Breath Last Admin: 07/08/21 09:51 Dose: 3 ml Documented by: Carvedilol (Carvedilol 6.25 Mg Tablet) 6.25 mg PO BIDCC [facility] Last Admin: 07/13/21 07:16 Dose: 6.25 mg Documented by: Diagnostic Test (Pha) (Accu-Chek 1 Each Strip) 1 each FS ACHS [facility] Last Admin: 07/13/21 07:05 Dose: 1 each Documented by: Famotidine (Famotidine 20 Mg Tablet) 20 mg PO QDAY [facility] Last Admin: 07/12/21 07:33 Dose: 20 mg Documented by: Fenofibrate (Fenofibrate 43 Mg Capsule) 86 mg PO DAILY [facility] Last Admin: 07/12/21 07:33 Dose: 86 mg Documented by: Gabapentin (Gabapentin 300 Mg Capsule) 300 mg PO BID [facility] Last Admin: 07/12/21 20:14 Dose: 300 mg Documented by: Heparin Sodium (Porcine) (Heparin 5,000 Unit/Ml Vial) 5,000 unit SQ Q12 [facility] Last Admin: 07/12/21 20:15 Dose: 5,000 unit Documented by: Insulin Human Regular 50 unit/ (Sodium Chloride) 100 mls @ 18 mls/hr IV Q24HP PRN; Protocol PRN Reason: HYPERGLYCEMIA Insulin Glargine (Insulin Glargine, Human 1 Unit/0.01 Ml) 50 unit SQ HS [facility] Last Admin: 07/12/21 20:14 Dose: 50 units Documented by: Insulin Human Lispro (Insulin Lispro 1 Unit/0.01 Ml Unit) 0 unit SQ ACHS [facility]; Protocol Last Admin: 07/13/21 07:12 Dose: 8 units Documented by: Ondansetron HCl (Ondansetron 4 Mg/2 Ml Vial) 4 mg IV Q4-6HP PRN; Protocol PRN Reason: Nausea And Vomiting Budesonide- Formoterol 160-4.5 Mcg/Actuation Hfa Inhaler 2 dose INH BID [facility] Last Admin: 07/12/21 20:16 Dose: Not Given Documented by: Senna (Sennosides 1 Tablet) 2 tab PO HSP PRN PRN Reason: Constipation Sodium Chloride (0.9 % Sodium Chloride 10 Ml Syringe) 10 ml IV Q8 [facility] Last Admin: 07/13/21 07:05 Dose: Not Given Documented by: Tamsulosin HCl (Tamsulosin 0.4 Mg Capsule) 0.8 mg PO QAM [facility] Last Admin: 07/12/21 07:33 Dose: 0.8 mg Documented by: Tramadol HCl (Tramadol 50 Mg Tablet) 50 mg PO TIDP PRN PRN Reason: Pain Last Admin: 07/12/21 13:02 Dose: 50 mg Documented by: A/P Narrative A/P Narrative: A: *HHS/DKA: -A1c 11.1 *Lumbar/cervical radiculopathy: *HTN/HLD *ADRYAN on CKD III: 2/2 above, improved *Lactic acidosis: 2/2 above *Hypertriglyceridemia: *hypophos *GERD: *COPD: *VAHID: Does not tolerate CPAP *Cognitive impairment: Evaluated by OT P: -Lantus (increase as needed, total 60u) and SSI -Monitor electrolytes closely and replete as needed -Continue home BB -Continue home inhalers -started Fibrate -IV lasix for peripheral edema -CM for placement -ppx: Heparin /home H2 Time Spent With Patient Time: Total time spent is greater than 50% in coordination of care (as documented) at patient's floor/unit and/or counseling patient: Total time spent with greater than 50% in coordination of care (as documented) at patient's floor/unit and/or counseling patient:: 25 - 35 minutes QUALITY VTE Deep Vein Thrombosis/Pulmonary Embolism Present on Admission: No
[2021-07-13] MEDS: TAMSULOSIN 0.4 MG CAPSULE PO SCH (08:14)
[2021-07-13] MEDS: FAMOTIDINE 20 MG TABLET PO SCH (08:14)
[2021-07-13] MEDS: GABAPENTIN 300 MG CAPSULE PO SCH (08:14)
[2021-07-13] MEDS: FENOFIBRATE 43 MG CAPSULE PO SCH (08:14)
[2021-07-13] MEDS: HEPARIN 5,000 UNIT/ML VIAL SQ SCH (08:14)
[2021-07-13] MEDS ORDERED: FUROSEMIDE 40 MG/4 ML VIAL IV ONE (08:30)
[2021-07-13] MEDS ORDERED: FUROSEMIDE 40 MG TABLET PO ONE (08:41)
[2021-07-13] MEDS ORDERED: INSULIN GLARGINE, HUMAN 1 UNIT/0.01 ML SQ SCH (09:00)
== END 2021-07-13 15:08 | disposition home health service (06) | DRG 638 ==
LOC: ED 07:28 → ICU 12:05 → MEDSUR 07-06 16:00
PROVIDERS: ADMIT Student in an Organized Health Care Education/Training Program; ATTEND Internal Medicine